=== PATIENT | female | born 1965 | race Caucasian/White ===

== ENCOUNTER → 2016-08-28 | Outpatient (CLI) | payer OTHER ==
[2016-08-28 08:42] LABS: EKG EKG PERFORMED
[2016-08-28 09:30] LABS: Aty Lym Flag Slight; CHCM 32.7; HCT 48.5 % (34.0-46.0); HDW 2.49; HGB 15.6 gm/dL (11.4-16.0); MCH 30.5 pg (25.0-35.0); MCHC 32.1 g/dL (31.0-37.0); MCV 95.2 fL (80.0-100.0); Mean Platelet Volume 7.1; RDW 12.9 % (11.5-15.5); WBC 4.1 k/uL (3.8-10.6); WBC (Perox) 4.07
[2016-08-28 10:10] LABS: Add Differential Manual Differential
[2016-08-28 10:12] LABS: Manual Review Performed; Nucleated Red Blood Cells 0 /100 WBC (0-0); Total Cells Counted 100
[2016-08-28 10:13] LABS: RBC Morphology Normal
[2016-08-28 10:16] LABS: Anion Gap 13 mmol/L; Carbon Dioxide 26 mmol/L (22-30); Chloride 104 mmol/L (98-107); Potassium 4.3 mmol/L (3.5-5.1); Sodium 143 mmol/L (137-145)
== END | disposition home or self-care (01) ==
LOC: LABWHC1 08:29
PROVIDERS: ATTEND Orthopaedic Surgery
DX: Z01.812 Encounter for preprocedural laboratory examination (principal); Z01.810 Encounter for preprocedural cardiovascular examination
CPT/HCPCS: 80051; 85025; 93005

== ENCOUNTER 2016-09-11 07:55 | Day surgery (SDC) | payer OTHER ==
[2016-09-05 13:00] VITALS: BMI 24.7
--- NOTE | 2016-09-10 18:02 | HP ---
DATE OF ADMISSION: 09/11/2016 Brandon Branch is a 51-year-old patient seen with progressive right knee pain. After having treatment options discussed, she elected to proceed with right knee arthroscopy. Consent was obtained. Her past medical history is noncontributory. Past surgical history is appendectomy, ablation. DAILY MEDICATIONS: Ibuprofen. ALLERGIES: IODINE. SOCIAL HISTORY: Patient denies tobacco use. PHYSICAL EVALUATION OF THE RIGHT KNEE: Her range of motion is negative 2 to 120 degrees. There is mild effusion present. Tenderness along the medial joint line with a positive medial Cintia's. Ligaments are stable. Hip rotation is without pain. Distal neurovascular exam is intact. Radiographs of the right knee revealed mild osteoarthritis. An MRI of the right knee revealed a medial meniscal tear as well as loose bodies and osteoarthritis. IMPRESSION: Internal derangement of right knee with medial meniscal tear and loose bodies. PLAN: Right knee arthroscopy with partial meniscectomy, debridement, probable removal of loose bodies.
[~2016-09-11 07:55] MED LIST: DEXAMETHASONE SOD PHOSPHATE 10 MG/ML 1 ML VIAL IV ONE; HYDROmorphone 1 MG/ML 1 ML SYRINGE IVP PRN; LACTATED RINGERS 1,000 ML IV SCH; MIDAZOLAM 2 MG/2 ML VIAL IV PRN; ONDANSETRON 4 MG/2 ML VIAL IVP ONE; ceFAZolin 1,000 MG in DEXTROSE/WATER 1 50ML.BAG IV ONE
[2016-09-11 08:26] VITALS: TEMP 97.8
[2016-09-11] MEDS ORDERED: LIDOCAINE 1% 20 ML VIAL (10MG/ML) FOR IV START INTRADERMA ONE (08:40)
[2016-09-11] MEDS ORDERED: fentaNYL (PF) 50 MCG/ML 2 ML AMP ONE (09:42)
[2016-09-11] MEDS ORDERED: LIDOCAINE 1% INJ 10MG/ML (20 ML MDV) ONE (09:42)
[2016-09-11] MEDS ORDERED: MIDAZOLAM 2 MG/2 ML VIAL ONE (09:42)
[2016-09-11] MEDS ORDERED: PROPOFOL 10 MG/ML 20 ML VIAL IV ONE (09:42)
[2016-09-11] MEDS ORDERED: BUPIVACAIN-EPI 0.25%-1:200,000 30 ML VIAL INTRAARTIC ONE ×2 (09:58→10:19)
--- NOTE | 2016-09-11 10:34 | P.OP ---
Date of Procedure: 09/11/16 Preoperative Diagnosis: Internal derangement right knee Postoperative Diagnosis: 1. Tear medial meniscus right knee 2. Grade 2/3 chondromalacia medial femoral condyle right knee 3. Grade 1/2 chondromalacia patella right knee 4. Medial plica right knee 5. Reactive synovitis medial and suprapatellar compartments right knee Procedure(s) Performed: 1. Arthroscopic partial medial meniscectomy right knee 2. Arthroscopic chondroplasty medial femoral condyle right knee 3. Arthroscopic chondroplasty patella right knee 4. Arthroscopic resection medial plica right knee 5. Arthroscopic partial synovectomy medial and suprapatellar compartments right knee Anesthesia: JOHNATHANA Surgeon: Dillon Niño Estimated Blood Loss (ml): 15 Pathology: none sent Condition: stable Disposition: PACU Indications for Procedure: 51-year-old patient seen with progressive right knee pain. After having treatment options discussed, she elected to proceed with right knee arthroscopy. Operative Findings: See description of procedure Description of Procedure: Patient was taken to the operative suite. Patient underwent a general anesthetic by the department of anesthesia. Patient was given preoperative antibiotics. The right lower extremity was placed in a well-padded arthroscopic leg alonso. The right leg was prepped and draped in the normal sterile orthopedic fashion. A lateral parapatellar and suprapatellar incision was made. Trochars were inserted. Arthroscopy was initiated. Suprapatellar pouch revealed thick reactive synovitis. The patellofemoral joint appeared to articulate congruently. There with grade 1/2 chondromalacia of the patella with osteochondral tears present. The scope was guided into the medial gutter. There was a medial plica present and is seem to impinge along the medial femoral condyle with range of motion. The scope was then guided into the medial compartment. A medial parapatellar incision was made. Trocar inserted followed by probe. There was a complex tear involving the posterior horn medial meniscus. There were grade 2-3 chondral malacia changes of the medial femoral condyle with osteochondral tears present. Thick reactive synovitis was noted anteriorly. There were no loose bodies. A partial medial meniscectomy was performed on a stable tissue. I performed a chondroplasty of the medial femoral condyle down to stable tissue as well as a partial synovectomy. The residual meniscus was probed and found to be stable. The residual osteochondral surface of medial femoral condyle was stable. Scope and probe were then guided into the intercondylar notch. Cruciates were identified, probed and found to be stable. The scope and probe were then guided into lateral compartment. Lateral meniscus was stable. The lateral femoral condyle and tibial plateau revealed mild grade 1 chondromalacia changes. No loose bodies or reactive synovitis. The scope was in guided back into the suprapatellar compartment. I introduced a motorized shaver into the super patellar compartment. I performed a chondroplasty of the patella down to stable tissue. I resected the medial plica. I debrided out some piecemeal fragments of meniscus and performed a partial synovectomy. The shaver was removed. I took the knee through range of motion and noted complete resection medial plica. I took one more look on the entire knee, no residual debris. Instruments were now removed from the joint. The joint was infiltrated with .25 % Marcaine. Steri-Strips were applied to the portal sites. Sterile dressings were applied. The patient was placed into a JR hose. No tourniquet was utilized. The patient was awakened, transferred to a bed and taken to recovery stable satisfactory condition.
[2016-09-11] MEDS: MEPERIDINE 50 MG/ML SYRINGE IVP ONE ×2 (10:44→10:53)
[2016-09-11 11:01] VITALS: RESP 16
[2016-09-11] MEDS ORDERED: KETOROLAC 30 MG/ML 1 ML VIAL IVP ONE (11:19)
[2016-09-11] MEDS ORDERED: HYDROcodone/APAP 7.5-325MG 1 EACH TAB PO ONE (12:10)
[2016-09-11 12:58] VITALS: BP 99/69; PULSE 64
== END 2016-09-11 12:45 | disposition home or self-care (01) ==
LOC: OR 07:55
PROVIDERS: ATTEND Orthopaedic Surgery
DX: S83.241A Other tear of medial meniscus, current injury, right knee, initial encounter (principal); M67.51 Plica syndrome, right knee; M23.41 Loose body in knee, right knee; M17.11 Unilateral primary osteoarthritis, right knee; M65.9 Synovitis and tenosynovitis, unspecified; M22.41 Chondromalacia patellae, right knee; G25.81 Restless legs syndrome; Z91.041 Radiographic dye allergy status; X58.XXXA Exposure to other specified factors, initial encounter; Z79.899 Other long term (current) drug therapy; Z79.1 Long term (current) use of non-steroidal anti-inflammatories (NSAID)
CPT/HCPCS: 29881; 81025; J2250; J1100; J2175; J2405; J2001; J3010; J1885; J1170; J0690; J2704

== ENCOUNTER → 2020-05-08 | Outpatient (CLI) | payer OTHER ==
--- NOTE | 2020-05-09 13:31 | USB ---
Reason for exam: additional evaluation requested from abnormal screening. History: Benign excisional biopsy of the left breast, 2006. Physical Findings: Nurse did not find any significant physical abnormalities on exam. US Breast Workup Limited LT Left limited breast ultrasound including focal area of concern, retroareolar and axilla demonstrates a 2.0cm mixed, echogenicity 2 o'clock with shadowing. Dense versus scar tissue. No obvious mass. These results were verbally communicated with the patient and result sheet given to the patient on 05/08/20. ASSESSMENT: Suspicious, BI-RAD 4 RECOMMENDATION: Surgical consultation of the left breast. Breast MRI of both breasts. Called Dr. Garza's office with mammographic findings and has scheduled an appointment for the patient for 05/31/20 at 9:[address] Macedo. PRELIMINARY REPORT CALLED AND FAXED TO DR. MACEDO ON 05/09/20.
== END | disposition home or self-care (01) ==
LOC: RADUSWWP 15:00
PROVIDERS: ATTEND Family Medicine
DX: R92.8 Other abnormal and inconclusive findings on diagnostic imaging of breast (principal)

== ENCOUNTER → 2020-05-31 | Outpatient (CLI) | payer OTHER ==
[2020-05-31 09:30] VITALS: BP 143/90; PULSE 81; RESP 18; TEMP 98.4
--- NOTE | 2020-05-31 09:39 | P.GSHP ---
History of Present Illness H&P Date: 05/31/20 Chief Complaint: abnormal mammogram and ultrasound left breast Malathi uCello is a 55 year old white female seen in consultation for Dr. Garza who had a bilateral mammogram in 05/02/2020. This revealed heterogeneously dense breast findings were #1. Architectural distortion upper quadrant middle position of the left breast felt may be related to prior excision and an ultrasound was recommended 2. Typical benign round calcifications in the right breast ultrasound of the left breast was then performed on . This revealed a 2 cm mixed echogenicity at the 2 o'clock position with shadowing. Density versus scar tissue. Surgical consultation was recommended as well as MRI of both breasts. Her last prior mammogram was approximately 2006. The patient herself does not feel any masses or nodules in either breast. She is not complaining of any nipple discharge or skin changes. She has not had any recent trauma or infection in the breast. She had a mass removed in 2006 which was benign. She was not recommended to have any further treatment. She was not given a definitive pathologic diagnosis. Caffeine: 4 mugs of coffee per day Nicotine: Negative Theophylline: occasionally Family history: patient adopted unknown Hormonal history: Menarche: 12 , breast fed: no, age at first : 23 menopause: ablation for irregular periods and bleeding 2005, no periods since BCP: less than 1 year hormones: none Surgical history: 1. Tonsillectomy 2. Appendectomy 3. Ganglion cyst left wrist 4. Removal from back 5. laproscopic exam for fertility work up 6. heart cath at 15 7. left breast biopsy 2006 8. Right knee surgery 9. Glaucoma bilateral Medical History: 1. GI bleed no surgery Social history: Nicotine: Negative Alcohol: Occasional Drugs: Negative - Constitutional Comment: takes escitalopram for night sweats Constitutional: Reports sweats - EENT Comment: glaucoma Eyes: bilateral blurred vision Ears: deny: decreased hearing, tinnitus Ears, nose, mouth and throat: Denies headache, Denies sore throat - Breasts Breasts: bilateral: as per HPI - Cardiovascular Cardiovascular: Denies chest pain, Denies shortness of breath - Respiratory Respiratory: Denies cough, Denies 7 - Gastrointestinal Gastrointestinal: Reports as per HPI - Genitourinary (Female) Genitourinary: Denies dysuria, Denies hematuria - Menstruation Menstruation: Reports postmenopausal - Musculoskeletal Musculoskeletal: Denies myalgias - Integumentary Integumentary: Denies pruritus, Denies rash - Neurological Neurological: Denies numbness, Denies weakness - Psychiatric Psychiatric: Denies anxiety - Endocrine Endocrine: Denies fatigue, Denies weight change - Hematologic/Lymphatic Comment: none - Allergic/Immunologic Allergic/Immunologic: Reports seasonal allergies Past Medical History History of Any Multi-Drug Resistant Organisms: None Reported Smoking Status: Never smoker Medications and Allergies Home Medications Medication Instructions Recorded Confirmed Type Carbidopa-Levodopa ER 50-200Mg 1 each PO HS 09/05/16 05/31/20 History [Sinemet ER 50-200] Escitalopram [Lexapro] 5 mg PO DAILY 05/31/20 05/31/20 History Allergies Allergy/AdvReac Type Severity Reaction Status Date / Time Iodinated Contrast Media Allergy Anaphylaxis Verified 05/31/20 09:04 [Iodinated Contrast Media - Oral and] iodine Allergy Anaphylaxis Verified 05/31/20 09:04 Surgical - Exam Vital Signs Temp Pulse Resp BP Pulse Ox 98.4 F 81 18 143/90 98 05/31/20 09:05 05/31/20 09:05 05/31/20 09:05 05/31/20 09:05 05/31/20 09:05 BMI 26 - General well developed, well nourished, no distress - Eyes normal ocular movement - ENT no hearing loss, no congestion - Neck no masses, trachea midline - Respiratory normal respiratory effort, clear to auscultation - Cardiovascular Rhythm: regular Heart Sounds: normal: S1, S2 - Abdomen Abdomen: soft, non tender, no guarding, no rigid, no rebound - Integumentary normal turgor - Neurologic no disoriented, no combative - Musculoskeletal normal gait, normal posture - Psychiatric oriented to time, oriented to person, oriented to place, speech is normal, memory intact Breast exam: BRA: 36G inspection: Bilateral grade 3 ptosis Right breast: Multiple positional exam fibrocystic changes, no dominant masses or nodules of concern Right axilla: No adenopathy of concern left breast: Well-healed scar from prior biopsy, multiple positional exam no dominant masses or nodules of concern, fibrocystic changes Left axilla: No adenopathy of concern Results Mammogram and ultrasound results reviewed Assessment and Plan Assessment: Impression: 1. Abnormal left breast mammogram and ultrasound 2. Prior left breast excisional biopsy in 2006 3. Perimenopausal/decreased night sweats on Lexapro 4. Moderate caffeine intake Plan: 1. Bilateral breast MRI 2. Follow-up after breast MRI 3. Discussed fibrocystic changes and caffeine intake We have discussed the fibrocystic changes can be exacerbated by caffeine. We've also discussed the need for close follow-up especially secondary to the fact that we do not know family history. The patient is going to have an MRI if insurance will allow if not we will review with radiology and ultrasound-guided biopsy versus repeat radiographs in 6 months. CC: Dr. Garza encounter 30 minutes, > 50% of time in planning and counselling Time with Patient: Greater than 30
== END | disposition home or self-care (01) ==
LOC: WWCWWP 08:52
PROVIDERS: ATTEND Surgery
DX: Z53.9 Procedure and treatment not carried out, unspecified reason (principal)

== ENCOUNTER → 2020-06-27 | Outpatient (CLI) | payer OTHER ==
--- NOTE | 2020-07-04 06:52 | BMR ---
EXAMINATION TYPE: MR breast BILAT wo/w con DATE OF EXAM: 06/27/2020 COMPARISON: 3-D mammogram May 02, 2020 BI-RADS 0. Left breast ultrasound May 08, 2020 BI- RADS 4. HISTORY: Abnormal mammogram and ultrasound. History of benign excisional biopsy left breast 2006. TECHNIQUE: A series of fat and water weighted images in the long and short axis views of both breasts are obtained in conjunction with dynamic contrast MRI with subtraction technique. The patient was i njected with 7 mL intravenous Gadavist gadolinium contrast. Three-dimensional and additional postpr ocessing imaging is created on independent workstation and reviewed during official interpretation of this study. FINDINGS: Breast parenchyma redemonstrated heterogeneously dense bilaterally. T2 and STIR weighted im ages show no significant cystic change in either breast. Tiny punctate simple cyst anteriorly left br east 6:00 position image 15 series 301 incidentally noted. T1-weighted images show no suspicious sac containing masses. No suspicious axillary adenopathy bilaterally. Dynamic postcontrast images show mi ld to moderate symmetric background enhancement. Delayed dynamic postcontrast imaging shows no suspic ious intramammary adenopathy bilaterally. With regards to the right breast no suspicious skin thickening is seen. No pathologic enhancement or enhancing masses identified. The chest wall is intact. With regards to the left breast. No abnormal skin thickening is seen. No concerning masses or patholo gic enhancement. The chest wall is intact. IMPRESSION: No MRI evidence for invasive malignancy in either breast. BI-RADS 2 benign findings right breast. BI-RADS 2 benign findings left breast. Recommendation: Patient due for bilateral breast mammogram April 2021 to be back on annual kenyonu
== END | disposition home or self-care (01) ==
LOC: RADMRIMAIN 12:26
PROVIDERS: ATTEND Surgery
DX: R92.8 Other abnormal and inconclusive findings on diagnostic imaging of breast (principal)
CPT/HCPCS: 77049; C8937; A9585

== ENCOUNTER → 2020-06-29 | Outpatient (CLI) | payer OTHER ==
--- NOTE | 2020-06-29 14:22 | P.PN ---
Progress Note - Text Progress Note Date: 06/29/20 Malathi Cuello had a recent mammogram and [id number] which revealed heterogeneously dense breast. Architectural distortion upper quadrant middle position of the left breast was felt to be possibly related to prior excision and an ultrasound was recommended Typical benign calcifications in the right breast were noted ultrasound of the left breast was performed and . this revealed a 2 cm mixed echogenicity at 2 o'clock position with shadowing. density versus scar tissue was felt to be present. surgical consultation was recommended as well as MRI of the breast. An MRI was performed on 06/1820 an official reading is not yet available, however this was reviewed with Dr. Mcdonald. He did not see any discrete lesions of concern in either breast. We did review the ultrasound again as well and there does appear to be a 2 cm lesion at 2:00. He felt that this was sufficiently worrisome to warrant an ultrasound-guided core biopsy despite a probable negative MRI. I discussed with the patient and she would concur. Therefore an ultrasound-guided core biopsy of the 2 o'clock position in the left breast is recommended following this she will come and see me for results.
[2020-06-29 14:23] VITALS: BP 132/87; PULSE 94; RESP 16; TEMP 98.3
== END | disposition home or self-care (01) ==
LOC: WWCWWP 13:52
PROVIDERS: ATTEND Surgery
DX: Z53.9 Procedure and treatment not carried out, unspecified reason (principal)

== ENCOUNTER → 2020-07-04 | Day surgery (SDC) | payer OTHER ==
[2020-07-04 12:19] VITALS: BP 128/64; PULSE 88; RESP 16; TEMP 99
--- NOTE | 2020-07-04 13:35 | USB ---
EXAMINATION TYPE: US discontinued breast bx LT Discontinued ultrasound guided breast biopsy left breast HISTORY: Previous abnormal Area of concern corresponding to the left 2:00 position fails to demonstrate evidence for distinct ma ss. The findings suggesting normal fibroglandular tissue. Biopsy was therefore discontinued. This was discussed with the patient and six-month follow-up mammography and ultrasound is advised. IMPRESSION: Probably benign BI-RADS 3 Recommendation: 6 month follow-up left-sided breast ultrasound and mammography.
== END ==
LOC: RADUSWWP 12:01
PROVIDERS: ATTEND Surgery
DX: R92.8 Other abnormal and inconclusive findings on diagnostic imaging of breast (principal)

== ENCOUNTER → 2021-01-02 | Outpatient (CLI) | payer OTHER ==
--- NOTE | 2021-01-02 13:13 | MM ---
Reason for exam: follow-up at short interval from prior study. Last mammogram was performed 8 months ago. History: US discontinued breast bx LT of the left breast, July 04, 2020. Benign excisional biopsy of the left breast, 2006. Physical Findings: Nurse did not find any significant physical abnormalities on exam. MG 3D Diag Mammo W/Cad LT CC and MLO view(s) were taken of the left breast. Prior study comparison: May 02, 2020, bilateral MG 3d screening mammo w/cad. The breast tissue is heterogeneously dense. This may lower the sensitivity of mammography. No significant new findings when compared with previous films. These results were verbally communicated with the patient and result sheet given to the patient on 01/02/21. ASSESSMENT: Incomplete: need additional imaging evaluation, BI-RAD 0 RECOMMENDATION: Ultrasound of the left breast. (left beast at same area of follow up from prior)
--- NOTE | 2021-01-02 13:14 | USB ---
Reason for exam: additional evaluation requested from abnormal screening. History: US discontinued breast bx LT of the left breast, July 04, 2020. Benign excisional biopsy of the left breast, 2006. US Breast Limited LT Left limited breast ultrasound including focal area of concern, retroareolar and axilla demonstrates no sonographic finding of cyst or mass at 2 o'clock other than island of dense breast tissue. ASSESSMENT: Benign, BI-RAD 2 RECOMMENDATION: Return to routine screening mammogram schedule for both breasts. Back on schedule for April 2021.
== END | disposition home or self-care (01) ==
LOC: RADMAMWWP 10:03
PROVIDERS: ATTEND Surgery
DX: R92.2 Inconclusive mammogram (principal)
CPT/HCPCS: 77061; 77065

== ENCOUNTER 2021-01-03 05:31 | Observation (INO) | payer OTHER ==
[2021-01-03] MEDS ORDERED: SODIUM CHLORIDE 0.9% 500 ML 500 ML IV STA (06:10)
--- NOTE | 2021-01-03 06:19 | ED ---
GI Bleed HPI - General Chief complaint: GI Bleed Stated complaint: Rectal Bleeding Time Seen by Provider: 01/03/21 06:10 Source: patient, family, RN notes reviewed Mode of arrival: ambulatory Limitations: no limitations - History of Present Illness Initial comments: 55-year-old female presents emergency Department chief complaint abdominal pain, diarrhea, rectal bleeding. Patient states started overnight. Patient states she woke up around midnight started having some abdominal discomfort. She states she started having multiple bouts of bloody diarrhea. Patient states she's had 2 bouts is last 10 years or so in which she's had colonoscopies is found to have colitis. Patient states she's noted. Diverticulitis eyes any blood thinners. Patient states she is left-sided abdominal pain no reported fevers or chills no chest pain no shortness breath no back pain no dysuria no hematuria - Related Data Home Medications Medication Instructions Recorded Confirmed Carbidopa-Levodopa ER 50-200Mg 1 each PO HS 09/05/16 07/04/20 [Sinemet ER 50-200] Escitalopram [Lexapro] 5 mg PO DAILY 05/31/20 07/04/20 Allergies Allergy/AdvReac Type Severity Reaction Status Date / Time Iodinated Contrast Media Allergy Anaphylaxis Verified 01/03/21 05:41 [Iodinated Contrast Media - Oral and] iodine Allergy Anaphylaxis Verified 01/03/21 05:41 Review of Systems ROS Statement: Those systems with pertinent positive or pertinent negative responses have been documented in the HPI. ROS Other: All systems not noted in ROS Statement are negative. Past Medical History Past Medical History: No Reported History Additional Past Medical History / Comment(s): Restless leg syndrome 2017, septic colitis 2006, 2014. History of Any Multi-Drug Resistant Organisms: None Reported Past Surgical History: Ablation, Appendectomy, Orthopedic Surgery, Tonsillectomy Additional Past Surgical History / Comment(s): Breast left biopsy. Knee surgery, Ganglion wrist remove Past Anesthesia/Blood Transfusion Reactions: No Reported Reaction Past Psychological History: No Psychological Hx Reported Smoking Status: Former smoker Past Alcohol Use History: Occasional Past Drug Use History: None Reported General Exam Limitations: no limitations General appearance: alert, in no apparent distress Head exam: Present: atraumatic, normocephalic, normal inspection Eye exam: Present: normal appearance, PERRL, EOMI. Absent: scleral icterus, conjunctival injection, periorbital swelling Respiratory exam: Present: normal lung sounds bilaterally. Absent: respiratory distress, wheezes, rales, rhonchi, stridor Cardiovascular Exam: Present: regular rate, normal rhythm, normal heart sounds. Absent: systolic murmur, diastolic murmur, rubs, gallop, clicks GI/Abdominal exam: Present: soft, tenderness (Mild left-sided), normal bowel sounds. Absent: distended, guarding, rebound, rigid Back exam: Absent: CVA tenderness (R), CVA tenderness (L) Neurological exam: Present: alert Skin exam: Present: warm, dry, intact, normal color. Absent: rash Course Vital Signs 01/03/21 05:36 Temperature 97.9 F Pulse Rate 87 Respiratory 18 Rate Blood Pressure 130/87 O2 Sat by Pulse 96 Oximetry Medical Decision Making - Medical Decision Making CT any significant for abnormality she's had couple bowel movements in the emergency room with bloody diarrhea. Patient's hemoglobin is stable. Patient will be admitted for GI consult. - Lab Data Result diagrams: 01/03/21 06:27 01/03/21 06:27 Lab Results 01/03/21 01/03/21 01/03/21 Range/Units 06:27 06:27 06:27 WBC 8.9 (3.8-10.6) k/uL RBC 4.73 (3.80-5.40) m/uL Hgb 15.2 (11.4-16.0) gm/dL Hct 43.8 (34.0-46.0) % MCV 92.6 (80.0-100.0) fL MCH 32.2 (25.0-35.0) pg MCHC 34.7 (31.0-37.0) g/dL RDW 12.9 (11.5-15.5) % Plt Count 270 (150-450) k/uL MPV 7.5 Neutrophils % 60 % Lymphocytes % 28 % Monocytes % 6 % Eosinophils % 4 % Basophils % 1 % Neutrophils # 5.3 (1.3-7.7) k/uL Lymphocytes # 2.5 (1.0-4.8) k/uL Monocytes # 0.5 (0-1.0) k/uL Eosinophils # 0.3 (0-0.7) k/uL Basophils # 0.0 (0-0.2) k/uL PT 9.6 (9.0-12.0) sec INR 0.9 (<1.2) APTT 22.6 (22.0-30.0) sec Sodium 139 (137-145) mmol/L Potassium 4.7 (3.5-5.1) mmol/L Chloride 108 H (98-107) mmol/L Carbon Dioxide 26 (22-30) mmol/L Anion Gap 5 mmol/L BUN 23 H (7-17) mg/dL Creatinine 0.79 (0.52-1.04) mg/dL Est GFR (CKD-EPI)AfAm >90 (>60 ml/min/1.73 sqM) Est GFR (CKD-EPI)NonAf 85 (>60 ml/min/1.73 sqM) Glucose 107 H (74-99) mg/dL Plasma Lactic Acid Rj (0.7-2.0) mmol/L Calcium 9.8 (8.4-10.2) mg/dL Total Bilirubin 0.5 (0.2-1.3) mg/dL AST 29 (14-36) U/L ALT 27 (4-34) U/L Alkaline Phosphatase 121 (38-126) U/L Troponin I (0.000-0.034) ng/mL Total Protein 7.2 (6.3-8.2) g/dL Albumin 4.3 (3.5-5.0) g/dL Lipase 66 (23-300) U/L 01/03/21 01/03/21 Range/Units 06:27 06:27 WBC (3.8-10.6) k/uL RBC (3.80-5.40) m/uL Hgb (11.4-16.0) gm/dL Hct (34.0-46.0) % MCV (80.0-100.0) fL MCH (25.0-35.0) pg MCHC (31.0-37.0) g/dL RDW (11.5-15.5) % Plt Count (150-450) k/uL MPV Neutrophils % % Lymphocytes % % Monocytes % % Eosinophils % % Basophils % % Neutrophils # (1.3-7.7) k/uL Lymphocytes # (1.0-4.8) k/uL Monocytes # (0-1.0) k/uL Eosinophils # (0-0.7) k/uL Basophils # (0-0.2) k/uL PT (9.0-12.0) sec INR (<1.2) APTT (22.0-30.0) sec Sodium (137-145) mmol/L Potassium (3.5-5.1) mmol/L Chloride (98-107) mmol/L Carbon Dioxide (22-30) mmol/L Anion Gap mmol/L BUN (7-17) mg/dL Creatinine (0.52-1.04) mg/dL Est GFR (CKD-EPI)AfAm (>60 ml/min/1.73 sqM) Est GFR (CKD-EPI)NonAf (>60 ml/min/1.73 sqM) Glucose (74-99) mg/dL Plasma Lactic Acid Rj 0.8 (0.7-2.0) mmol/L Calcium (8.4-10.2) mg/dL Total Bilirubin (0.2-1.3) mg/dL AST (14-36) U/L ALT (4-34) U/L Alkaline Phosphatase (38-126) U/L Troponin I <0.012 (0.000-0.034) ng/mL Total Protein (6.3-8.2) g/dL Albumin (3.5-5.0) g/dL Lipase (23-300) U/L Disposition Clinical Impression: Rectal bleeding Disposition: ADMITTED IP TO THIS HOSP Condition: Fair Referrals: Diana Garza MD [Primary Care Provider] - 1-2 days
[2021-01-03] MEDS ORDERED: FAMOTIDINE 20 MG/2 ML VIAL IV STA (06:46)
[2021-01-03] MEDS ORDERED: diphenhydrAMINE 50 MG/ML 1 ML VIAL IVP STA (06:46)
[2021-01-03] MEDS ORDERED: methylPREDNISolone SOD SUCCI 125 MG/2 ML VIAL IV STA (06:46)
[2021-01-03 06:57] LABS: Basophils % (A) 1 %; Eosinophils # (A) 0.3 k/uL (0-0.7); Eosinophils % (A) 4 %; HCT 43.8 % (34.0-46.0); HGB 15.2 gm/dL (11.4-16.0); Lymphocytes # (A) 2.5 k/uL (1.0-4.8); Lymphocytes % (A) 28 %; MCH 32.2 pg (25.0-35.0); MCHC 34.7 g/dL (31.0-37.0); MCV 92.6 fL (80.0-100.0); Mean Platelet Volume 7.5; Monocytes # (A) 0.5 k/uL (0-1.0); Monocytes % (A) 6 %; Neutrophils # (A) 5.3 k/uL (1.3-7.7); Neutrophils % (A) 60 %; Platelet Count 270 k/uL (150-450); RBC 4.73 m/uL (3.80-5.40); RDW 12.9 % (11.5-15.5); WBC 8.9 k/uL (3.8-10.6)
[2021-01-03 07:08] LABS: INR 0.9 (<1.2); Partial Thromboplastin Time 22.6 sec (22.0-30.0); Prothrombin Time 9.6 sec (9.0-12.0)
[2021-01-03 07:25] LABS: ALT 27 U/L (4-34); AST 29 U/L (14-36); African American GFR (CKD) >90 (>60 ml/min/1.73 sqM); Albumin 4.3 g/dL (3.5-5.0); Alkaline Phosphatase 121 U/L (38-126); Anion Gap 5 mmol/L; Blood Urea Nitrogen 23 mg/dL (7-17); Calcium 9.8 mg/dL (8.4-10.2); Carbon Dioxide 26 mmol/L (22-30); Chloride 108 mmol/L (98-107); Glucose 107 mg/dL (74-99); Lipase 66 U/L (23-300); Non-African American GFR(CKD) 85 (>60 ml/min/1.73 sqM); Potassium 4.7 mmol/L (3.5-5.1); Sodium 139 mmol/L (137-145); Total Bilirubin 0.5 mg/dL (0.2-1.3); Total Protein 7.2 g/dL (6.3-8.2)
--- NOTE | 2021-01-03 07:40 | CT ---
EXAMINATION TYPE: CT abdomen pelvis wo con DATE OF EXAM: 01/03/2021 HISTORY: Rectal bleeding CT DLP: 528.1 mGycm. Automated Exposure Control for Dose Reduction was Utilized. TECHNIQUE: CT scan of the abdomen and pelvis is performed without oral or IV contrast. COMPARISON: NONE FINDINGS: Within the limitations of a non-contrast study, the following observations are made. LUNG BASES: No significant abnormality is appreciated. LIVER/GB: No significant abnormality is appreciated. PANCREAS: No significant abnormality is seen. SPLEEN: No significant abnormality is seen. ADRENALS: No significant abnormality is seen. KIDNEYS: Mild left-sided hydronephrosis without obstructing calculus seen. Scattered bilateral pelvic phleboliths. BOWEL: Suboptimal evaluation of bowel without enteric contrast. Stomach poorly distended and suboptim ally evaluated. No suspicious small or large bowel dilatation. A few scattered colonic diverticula. GENITAL ORGANS: Anteverted uterus. LYMPH NODES: No greater than 1cm abdominal or pelvic lymph nodes are appreciated. OSSEOUS STRUCTURES: No significant abnormality is seen. OTHER: No significant additional abnormality is seen. IMPRESSION: Few scattered colonic diverticula. No convincing CT evidence for acute diverticulitis. No bowel obstruction.
[2021-01-03] MEDS ORDERED: ONDANSETRON 4 MG/2 ML VIAL IVP PRN (08:05)
[2021-01-03] MEDS ORDERED: ACETAMINOPHEN TAB 325 MG TAB PO PRN (08:05)
[2021-01-03] MEDS ORDERED: NALOXONE 0.4 MG/ML 1 ML VIAL IV PRN (08:05)
--- NOTE | 2021-01-03 11:09 | P.HPIM ---
History of Present Illness H&P Date: 01/03/21 Chief Complaint: GI bleed This is a 55-year-old female patient of Dr. Garza. Patient presented to ER with complaints of GI bleed. Patient reports his symptoms started last night with diarrhea followed by bright red blood per rectum. Patient reports she's had similar episodes before in 2006 and 2014. Patient reports that she did have colonoscopy at those times was told she had septic colitis. Patient does have a past medical history of restless leg syndrome. Patient denies any alcohol use. Patient denies any recent change to diet. Patient denies any said NSAIDs use Hemoglobin currently stable at 15.2. CT of abdomen and pelvis completed showing few scattered colonic diverticuli no convincing CT evidence of acute diverticulitis no bowel obstruction. At this time patient is complaining of mild abdominal discomfort lower abdomen. Denies nausea or vomiting. Denies any chest pain or shortness of breath. Patient denies any urinary burning or frequency. Review of Systems please refer to HPI otherwise unremarkable Past Medical History Past Medical History: No Reported History Additional Past Medical History / Comment(s): Restless leg syndrome 2016, septic colitis 2006, 2014. History of Any Multi-Drug Resistant Organisms: None Reported Past Surgical History: Ablation, Appendectomy, Orthopedic Surgery, Tonsillectomy Additional Past Surgical History / Comment(s): Breast left biopsy. Knee surgery, Ganglion wrist remove Past Anesthesia/Blood Transfusion Reactions: No Reported Reaction Past Psychological History: No Psychological Hx Reported Smoking Status: Former smoker Past Alcohol Use History: Occasional Past Drug Use History: None Reported Medications and Allergies Home Medications Medication Instructions Recorded Confirmed Type Carbidopa-Levodopa ER 50-200Mg 1 tab PO HS 09/05/16 01/03/21 History [Sinemet ER 50-200] Escitalopram [Lexapro] 10 mg PO DAILY 01/03/21 01/03/21 History Allergies Allergy/AdvReac Type Severity Reaction Status Date / Time Iodinated Contrast Media Allergy Anaphylaxis Verified 01/03/21 08:18 [Iodinated Contrast Media - Oral and] iodine Allergy Anaphylaxis Verified 01/03/21 08:18 Physical Exam Vitals: Vital Signs Temp Pulse Resp BP Pulse Ox 01/03/21 10:17 92 16 98/64 96 01/03/21 08:00 71 16 105/66 95 01/03/21 05:36 97.9 F 87 18 130/87 96 Intake and Output 01/02/21 01/03/21 01/03/21 22:59 06:59 14:59 Other: Weight 71.033 kg Head normocephalic Neck supple Lungs clear to auscultation bilaterally no wheezing or crackles Heart regular rate and rhythm S1-S2, no rub or gallop Abdomen is soft lower abdomen tenderness to palpation nondistended positive bowel sounds no hepatosplenomegaly Extremities no edema Neuro alert and orientated to 3 Results CBC & Chem 7: 01/03/21 06:27 01/03/21 06:27 Labs: Abnormal Lab Results - Last 24 Hours (Table) 01/03/21 Range/Units 06:27 Chloride 108 H (98-107) mmol/L BUN 23 H (7-17) mg/dL Glucose 107 H (74-99) mg/dL Assessment and Plan Assessment: 1. GI bleed. CT of abdomen completed showing few scattered colonic diverticula no convincing CT evidence of acute diverticulitis no bowel obstruction. GI services have been consulted. Continue to monitor hemoglobin 2. Previous episodes of GI bleed requiring colonoscopy 3. History of restless leg syndrome. Patient maintained on levodopa DVT prophylaxis SCDs. GI prophylaxis Protonix GI service is consulted Continue to monitor hemoglobin Time with Patient: Greater than 30
--- NOTE | 2021-01-03 15:23 | P.CONS ---
History of Present Illness - Reason for Consult Consult date: 01/03/21 GI bleed Requesting physician: Sai Daly - Chief Complaint Blood per rectum - History of Present Illness 55-year-old female with a medical history significant for restless legs syndrome and prior hospitalizations for GI bleed which she reports are secondary to septic colitis who presents to the hospital with complaints of blood per rectum. She reports lying down for bed yesterday and being fine. Subsequently she woke up and developed multiple episodes of loose watery bowel movements occurring approximately every 5-10 minutes. She reported severe cramping abdominal pain and association with the bowel movements. Subsequently around 4 AM she started developing multiple episodes of bright red blood per rectum. She's had multiple episodes prior to presentation to the emergency department. She reports 2 similar episodes in 2006 and in 2014 at [facility] and believes that colonoscopies were both normal at that time. She was adopted it is unclear what any family history. She denies any nausea and vomiting in association with her symptoms. She denies any sick contacts, abnormal foods or medicines. No fever or chills. Hemoglobin stable at 15.2 on presentation with WBC 8.9 and platelet count 270,000. Computed tomography scan of the abdomen and pelvis significant for diverticulosis with no evidence of diverticulitis, colitis or bowel ob struction. Review of Systems REVIEW OF SYSTEMS: CONSTITUTIONAL: Denies any fevers, chills, weight change or fatigue. CARDIOVASCULAR: Denies any chest pain, palpitations high or low blood pressures RESPIRATORY: Denies any shortness of breath, hemoptysis or cough. GENITOURINARY: No dysuria or hematuria. MUSCULOSKELETAL: No weakness reported. SKIN: Denies any new rashes or lesions, jaundice or pallor. PSYCHIATRIC: Denies any depression or anxiety. NEUROLOGY: Denies headache, denies any new focal deficits. EARS/NOSE/THROAT: No recent hearing change, congestion, nasal discharge or sore throat. EYES: No pain in eyes, discharge or change in vision. GASTROINTESTINAL: As per HPI. Past Medical History Past Medical History: No Reported History Additional Past Medical History / Comment(s): Restless leg syndrome 2016, septic colitis 2006, 2014. History of Any Multi-Drug Resistant Organisms: None Reported Past Surgical History: Ablation, Appendectomy, Orthopedic Surgery, Tonsillectomy Additional Past Surgical History / Comment(s): Breast left biopsy. Knee surgery, Ganglion wrist remove Past Anesthesia/Blood Transfusion Reactions: No Reported Reaction Past Psychological History: No Psychological Hx Reported Smoking Status: Former smoker Past Alcohol Use History: Occasional Past Drug Use History: None Reported Additional History: Family history: Patient denies any significant family history as she is unclear about her family history is secondary to being adopted. Medications and Allergies Home Medications Medication Instructions Recorded Confirmed Type Carbidopa-Levodopa ER 50-200Mg 1 tab PO HS 09/05/16 01/03/21 History [Sinemet ER 50-200] Escitalopram [Lexapro] 10 mg PO DAILY 01/03/21 01/03/21 History Allergies Allergy/AdvReac Type Severity Reaction Status Date / Time Iodinated Contrast Media Allergy Anaphylaxis Verified 01/03/21 08:18 [Iodinated Contrast Media - Oral and] iodine Allergy Anaphylaxis Verified 01/03/21 08:18 Physical Exam Vitals: Vital Signs Temp Pulse Resp BP Pulse Ox 01/03/21 10:17 92 16 98/64 96 01/03/21 08:00 71 16 105/66 95 01/03/21 05:36 97.9 F 87 18 130/87 96 Intake and Output 01/02/21 01/03/21 01/03/21 22:59 06:59 14:59 Other: Weight 71.033 kg On physical examination, patient appears comfortable in no apparent distress. HEAD: Normocephalic, atraumatic. EYES: No scleral icterus. No conjunctival injection. MOUTH: No lesions, tongue midline. NECK: Trachea midline, no gross abnormalities. CHEST: Clear to auscultation with no wheezing or rhonchi appreciated. HEART: Regular rate and rhythm. ABDOMEN: Soft, nontender to palpation. Bowel sounds are positive. No organomegaly. No guarding or rigidity. EXTREMITIES: No pedal edema. SKIN: No rashes, no jaundice. NEUROLOGIC: Alert and oriented x3. No focal deficits. Results CBC & Chem 7: 01/03/21 06:27 01/03/21 06:27 Labs: Abnormal Lab Results - Last 24 Hours (Table) 01/03/21 Range/Units 06:27 Chloride 108 H (98-107) mmol/L BUN 23 H (7-17) mg/dL Glucose 107 H (74-99) mg/dL CT scan - abdomen: report reviewed (Computed tomography scan of the abdomen and pelvis significant for diverticulosis with no evidence of diverticulitis, colitis or bowel obstruction.) Assessment and Plan (1) Rectal bleeding Narrative/Plan: 55-year-old female presenting with complaints of hematochezia. Multiple episodes of bright red blood per rectum with associated cramping prior to episodes. This was preceded by multiple episodes of nonbloody diarrhea. She reports 2 episodes of similar complaints in the past at which time she was told she had "septic colitis". She reports being evaluated with colonoscopy in 2016 2014 during those presentations and reports that colonoscopies are normal. She denies any sick contacts, unusual foods, new medications, fevers, chills, nausea or vomiting. Hemoglobin stable on presentation at 15.2. Computed tomography scan of the abdomen negative for any evidence of colitis or obstruction with diverticulosis noted. Unclear etiology, suspicion is for perirectal/hemorrhoidal bleeding or possibly diverticular bleeding with no evidence of colitis on computed tomography scan of the abdomen, with other et iology also considered. Current Visit: Yes Status: Acute Code(s): K62.5 - HEMORRHAGE OF ANUS AND RECTUM SNOMED Code(s): 66392480 (2) Diverticulosis Current Visit: Yes Status: Acute Code(s): K57.90 - DVRTCLOS OF INTEST, PART UNSP, W/O PERF OR ABSCESS W/O BLEED SNOMED Code(s): 651648887 Plan: Supportive care Clear liquid diet Continue monitor hemoglobin and hematocrit every 6 hours and transfuse as needed Avoid any anticoagulation therapy Extensive discussion with the patient at this time we'll continue with medical management with no plans for endoscopic, patient has continued bleeding or precipitous fall in hemoglobin will reevaluate at that time Otherwise, recommendation is for repeat colonoscopy in 6-8 weeks Thank you for allowing us to participate in the care of the patient we will continue to follow
[2021-01-03 16:29] LABS: Basophils % (A) 0 %; Eosinophils % (A) 0 %; HCT 44.4 % (34.0-46.0); HGB 15.1 gm/dL (11.4-16.0); Lymphocytes # (A) 0.8 k/uL (1.0-4.8); Lymphocytes % (A) 9 %; MCH 31.7 pg (25.0-35.0); MCHC 33.9 g/dL (31.0-37.0); MCV 93.5 fL (80.0-100.0); Mean Platelet Volume 7.7; Monocytes # (A) 0.2 k/uL (0-1.0); Monocytes % (A) 2 %; Neutrophils # (A) 7.8 k/uL (1.3-7.7); Neutrophils % (A) 88 %; Platelet Count 264 k/uL (150-450); RBC 4.75 m/uL (3.80-5.40); RDW 12.9 % (11.5-15.5); WBC 8.8 k/uL (3.8-10.6)
[2021-01-03] MEDS: CARBIDOPA-LEVODOPA ER 50-200MG 1 EACH TABLET.ER PO SCH (21:12)
[2021-01-04 07:07] LABS: Basophils % (A) 0 %; Eosinophils % (A) 0 %; HCT 43.6 % (34.0-46.0); HGB 14.6 gm/dL (11.4-16.0); Lymphocytes # (A) 2.1 k/uL (1.0-4.8); Lymphocytes % (A) 17 %; MCH 31.6 pg (25.0-35.0); MCHC 33.5 g/dL (31.0-37.0); MCV 94.4 fL (80.0-100.0); Mean Platelet Volume 7.8; Monocytes # (A) 0.5 k/uL (0-1.0); Monocytes % (A) 4 %; Neutrophils # (A) 9.5 k/uL (1.3-7.7); Neutrophils % (A) 77 %; Platelet Count 280 k/uL (150-450); RBC 4.62 m/uL (3.80-5.40); WBC 12.4 k/uL (3.8-10.6)
[2021-01-04] MEDS: PANTOPRAZOLE 40 MG/10 ML VIAL IVP SCH (08:33)
[2021-01-04] MEDS: ESCITALOPRAM 10 MG TAB PO SCH (08:33)
--- NOTE | 2021-01-04 14:26 | PN ---
PROGRESS NOTE DATE OF SERVICE: January 04, 2021 The patient is a 55-year-old pleasant white female admitted to the hospital with lower abdominal pain followed by diarrhea and rectal bleeding for the last 2 days duration. She is feeling much better today. She had 4 bowel movements with small amount of blood noted. Her hemoglobin, however, remains stable at 14.6 g/dL. She denies any nausea, vomiting. No fever, chills, or night sweats. PHYSICAL EXAMINATION: She appears comfortable. No apparent distress. VITAL SIGNS: Stable. Blood pressure is 130/72, pulse rate 70, temperature 98.1. HEENT examination unremarkable. Conjunctivae pink. Sclerae anicteric. Oral cavity no lesions. NECK: No JVD or lymph node enlargement. CHEST was clear to auscultation. HEART: Regular rate and rhythm. ABDOMEN: Soft. There was very minimal tenderness in the left upper quadrant area. Rest of the abdomen was benign. Bowel sounds are positive. No organomegaly. EXTREMITIES: No pedal edema. SKIN: No rashes. NEUROLOGIC: Alert and oriented x3. No focal deficits. LABS: WBC 12.4, hemoglobin 14.6, platelets normal. Basic metabolic panel was not done. IMPRESSION: Lower abdominal pain followed by diarrhea and rectal bleeding of 2 days duration most likely dealing with acute infectious colitis versus ischemic colitis, cannot rule out diverticular bleed, though unlikely. CT scan of the abdomen and pelvis was unremarkable. RECOMMENDATIONS: 1. Obtain stool cultures. 2. Monitor CBC daily. 3. If her bleeding improves, she can be discharged home tomorrow with outpatient colonoscopy in 4-6 weeks. The plan was discussed with the patient. She is agreeable to it. Thank you for this consultation. MMODL / IJN: [id number] /
[2021-01-04] MEDS: CARBIDOPA-LEVODOPA ER 50-200MG 1 EACH TABLET.ER PO SCH (19:40)
[2021-01-05 00:50] LABS: African American GFR (CKD) 112.3 (60.0-200.0); Albumin 4.1 g/dL (3.80-4.90); Albumin/Globulin Ratio 1.64 (1.60-3.17); Anion Gap 6.3 mmol/L (4.00-12.00); BUN/Creat Ratio 24.29 Ratio (12.00-20.00); Calcium 9.6 mg/dL (8.7-10.3); Carbon Dioxide 28.7 mmol/L (21.6-31.8); Globulin 2.5 g/dL (1.6-3.3); Non-African American GFR(CKD) 96.9 (60.0-200.0); Potassium 4.5 mmol/L (3.5-5.5); Total Bilirubin 0.7 mg/dL (0.2-1.2); Total Protein 6.6 g/dL (6.2-8.2)
[2021-01-05] MEDS: ESCITALOPRAM 10 MG TAB PO SCH (09:03)
[2021-01-05] MEDS: PANTOPRAZOLE 40 MG/10 ML VIAL IVP SCH (09:03)
[2021-01-05 10:13] LABS: Basophils # (A) 0.1 k/uL (0-0.2); Basophils % (A) 1 %; Eosinophils # (A) 0.2 k/uL (0-0.7); Eosinophils % (A) 2 %; HCT 45.6 % (34.0-46.0); HGB 14.9 gm/dL (11.4-16.0); Lymphocytes # (A) 1.8 k/uL (1.0-4.8); Lymphocytes % (A) 24 %; MCH 30.9 pg (25.0-35.0); MCHC 32.7 g/dL (31.0-37.0); MCV 94.5 fL (80.0-100.0); Mean Platelet Volume 7.7; Monocytes # (A) 0.3 k/uL (0-1.0); Monocytes % (A) 5 %; Neutrophils # (A) 4.9 k/uL (1.3-7.7); Neutrophils % (A) 67 %; Platelet Count 243 k/uL (150-450); RBC 4.82 m/uL (3.80-5.40); RDW 13.6 % (11.5-15.5); WBC 7.4 k/uL (3.8-10.6)
--- NOTE | 2021-01-05 10:26 | PN ---
PROGRESS NOTE DATE OF DICTATION: January 05, 2021 The patient is a 55-year-old pleasant white female admitted to the hospital with acute lower abdominal pain and rectal bleeding of 2 days duration. She is doing much better today. Her bleeding has completely subsided. She had no bowel movements this morning. Yesterday, she had 4 small bloody bowel movements. She reports no nausea or vomiting, on a clear liquid diet, tolerating well. PHYSICAL EXAMINATION: Appears comfortable. VITAL SIGNS: Stable. Blood pressure 123/78, pulse rate 66, temperature 97.8. HEENT examination unremarkable. Conjunctivae pink. Sclerae anicteric. Oral cavity no lesions. NECK: No JVD or lymph node enlargement. CHEST was clear to auscultation. HEART: Regular rate and rhythm. ABDOMEN: Soft. Bowel sounds are positive. No organomegaly. EXTREMITIES: No pedal edema. SKIN: No rashes. NEURO: She is alert and oriented x3. No focal deficits. LABS: From this morning still pending. Labs from yesterday: Hemoglobin was 14.6. IMPRESSION: Lower abdominal pain and acute lower gastrointestinal bleed of 2 days duration. Hemoglobin stable at 14 g/dL. CBC from this morning are pending. She has no further episodes of bleeding, possibly colitis versus diverticular bleed. The patient clinically improving with no further bleeding. RECOMMENDATIONS: 1. Advance to a regular diet. 2. If the hemoglobin remains stable from today, she can be discharged home with outpatient followup in 2 weeks and we will plan an outpatient colonoscopy in 2-4 weeks. Thank you for this consultation. MMODL / PHILIPN: [id number] /
--- NOTE | 2021-01-05 11:35 | P.PN ---
Subjective Progress Note Date: 01/04/21 This is a 55-year-old female patient of Dr. Garza. Patient presented to ER with complaints of GI bleed. Patient reports his symptoms started last night with diarrhea followed by bright red blood per rectum. Patient reports she's had similar episodes before in 2006 and 2014. Patient reports that she did have colonoscopy at those times was told she had septic colitis. Patient does have a past medical history of restless leg syndrome. Patient denies any alcohol use. Patient denies any recent change to diet. Patient denies any said NSAIDs use Hemoglobin currently stable at 15.2. CT of abdomen and pelvis completed showing few scattered colonic diverticuli no convincing CT evidence of acute d iverticulitis no bowel obstruction. At this time patient is complaining of mild abdominal discomfort lower abdomen. Denies nausea or vomiting. Denies any chest pain or shortness of breath. Patient denies any urinary burning or frequency. On 01/04/2021 Patient was seen and examined on the medical floor, he is alert and oriented x 3 in no distress, patient is complaining of abdominal pain and small amount of rectal bleeding, otherwise, she denies any complaints there is no fever or chills no headache or dizziness no chest pain no shortness of breath no palpitation no cough no nausea or vomiting no diarrhea, no burning with urination no frequency or urgency and no hematuria, there is no weakness or numbness in any of the extremities no change in vision speech or gait. Objective - Vital Signs Vital signs: Vital Signs Temp 98.2 F 01/04/21 05:00 Pulse 83 01/04/21 05:00 Resp 20 01/04/21 05:00 BP 113/72 01/04/21 05:00 Pulse Ox 98 01/04/21 05:00 Intake & Output 01/03/21 01/04/21 01/04/21 18:59 06:59 18:59 Intake Total 720 200 Balance 720 200 Weight 71.033 kg Intake: Oral 720 200 Other: Voiding Method Toilet Toilet # Voids 3 1 - Exam Head normocephalic Neck supple Lungs clear to auscultation bilaterally no wheezing or crackles Heart regular rate and rhythm S1-S2, no rub or gallop Abdomen is soft lower abdomen tenderness to palpation, LLQ, nondistended positive bowel sounds no hepatosplenomegaly Extremities no edema Neuro alert and orientated to 3 - Labs CBC & Chem 7: 01/05/21 09:56 01/04/21 06:05 Labs: Abnormal Lab Results - Last 24 Hours (Table) 01/03/21 01/04/21 Range/Units 16:02 06:05 WBC 12.4 H (3.8-10.6) k/uL Neutrophils # 7.8 H 9.5 H (1.3-7.7) k/uL Lymphocytes # 0.8 L (1.0-4.8) k/uL Assessment and Plan Assessment: 1. GI bleed. CT of abdomen completed showing few scattered colonic diverticula no convincing CT evidence of acute diverticulitis no bowel obstruction. GI services have been consulted. Continue to monitor hemoglobin 2. Previous episodes of GI bleed requiring colonoscopy 3. History of restless leg syndrome. Patient maintained on levodopa DVT prophylaxis SCDs. GI prophylaxis Protonix GI service is consulted Continue to monitor hemoglobin
[2021-01-05 11:53] VITALS: BP 96/62; PULSE 61; RESP 14; TEMP 98.2
--- NOTE | 2021-01-05 12:59 | P.DS ---
Providers Date of admission: 01/03/21 10:18 Expected date of discharge: 01/05/21 Attending physician: Sai Daly Consults: 01/03/21 08:05 Consult Physician Urgent Consulting Provider: Gifty Llanos Consult Reason/Comments: gi bleed Do you want consulting provider notified?: Yes Primary care physician: Diana Garza Hospital Course: Diagnosis on discharge: 1. GI bleed. CT of abdomen completed showing few scattered colonic diverticula no convincing CT evidence of acute diverticulitis no bowel obstruction. GI services have been consulted. Continue to monitor hemoglobin 2. Previous episodes of GI bleed requiring colonoscopy 3. History of restless leg syndrome. Patient maintained on levodopa. 4. Evidence of mild left sided kidney hydronephrosis on computed tomography scan of the abdomen and pelvis, without any evidence of obstructing calculus. This may need to be further evaluated as outpatient with kidney ultrasound in the next 1-2 months, and possible referral to urology if hydronephrosis persists. There is a possibility that patient passed a kidney stone prior to presentation which caused her left sided abdominal pain, Hospital course: This is a 55-year-old female patient of Dr. Garza. Patient presented to ER with complaints of GI bleed. Patient reports his symptoms started last night with diarrhea followed by bright red blood per rectum. Patient reports she's had similar episodes before in 2006 and 2014. Patient reports that she did have colonoscopy at those times was told she had septic colitis. Patient does have a past medical history of restless leg syndrome. Patient denies any alcohol use. Patient denies any recent change to diet. Patient denies any said NSAIDs use Hemoglobin currently stable at 15.2. CT of abdomen and pelvis completed showing few scattered colonic diverticuli no convincing CT evidence of acute diverticulitis no bowel obstruction. At this time patient is complaining of mild abdominal discomfort lower abdomen. Denies nausea or vomiting. Denies any chest pain or shortness of breath. Patient denies any urinary burning or frequency. On 01/04/2021 Patient was seen and examined on the medical floor, he is alert and oriented x 3 in no distress, patient is complaining of abdominal pain and small amount of rectal bleeding, otherwise, she denies any complaints there is no fever or chills no headache or dizziness no chest pain no shortness of breath no palpitation no cough no nausea or vomiting no diarrhea, no burning with urina tion no frequency or urgency and no hematuria, there is no weakness or numbness in any of the extremities no change in vision speech or gait. On 01/05/2021 Patient was seen and examined on the medical floor, he is alert and oriented x 3 in no distress, he denies any complaints there is no fever or chills no headache or dizziness no chest pain no shortness of breath no palpitation no cough no nausea or vomiting no abdominal pain no diarrhea no blood in the stools no burning with urination no frequency or urgency and no hematuria, there is no weakness or numbness in any of the extremities no change in vision speech or gait. Patient was evaluated by Dr. Gifty Llanos and was cleared for discharge patient will be followed by Dr. Whaley as outpatient in the next 1-2 weeks and will have a colonoscopy in the next 2-4 weeks. Patient was informed of abnormality on her left kidney with mild kidney hydronephrosis on the left. She did not want to stay in the hospital to have any further evaluation that regard, she was asymptomatic at the time of discharge, and will be followed by her primary care physician Dr. Garza for further evaluation as outpatient. Patient Condition at Discharge: Fair Plan - Discharge Summary Discharge Rx Participant: No New Discharge Prescriptions: New Pantoprazole Sodium [Protonix] 40 mg PO DAILY 30 Days #30 tablet. Acetaminophen Tab [Tylenol] 650 mg PO Q6HR PRN tab PRN Reason: Mild Pain Or Fever > 100.5 Continue Carbidopa-Levodopa ER 50-200Mg [Sinemet CR 50-200 mg] 1 tab PO HS Escitalopram [Lexapro] 10 mg PO DAILY Discharge Medication List Carbidopa-Levodopa ER 50-200Mg [Sinemet CR 50-200 mg] 1 tab PO HS 09/05/16 [History] Escitalopram [Lexapro] 10 mg PO DAILY 01/03/21 [History] Acetaminophen Tab [Tylenol] 650 mg PO Q6HR PRN tab 01/05/21 [Rx] Pantoprazole Sodium [Protonix] 40 mg PO DAILY 30 Days #30 tablet. 01/05/21 [Rx] Follow up Appointment(s)/Referral(s): Diana Garza MD [Primary Care Provider] - 1-2 days
== END 2021-01-05 14:39 | disposition home or self-care (01) ==
LOC: EC 05:31 → 5NMEDONC 10:18
PROVIDERS: ADMIT Internal Medicine; ATTEND Internal Medicine
DX: K57.32 Diverticulitis of large intestine without perforation or abscess without bleeding (principal); K62.5 Hemorrhage of anus and rectum; N13.2 Hydronephrosis with renal and ureteral calculous obstruction; Z20.822 Contact with and (suspected) exposure to COVID-19; G25.81 Restless legs syndrome; Z79.899 Other long term (current) drug therapy; Z91.041 Radiographic dye allergy status; Z90.49 Acquired absence of other specified parts of digestive tract; Z98.890 Other specified postprocedural states; Z87.891 Personal history of nicotine dependence
CPT/HCPCS: 96376; 96375 ×2; 96361; 96374; 99285; 36415; 80053 ×2; 83605; 83690; 84484; 85025 ×3; 85610; 85730; 87045; 87046; 87635; 74176; G0378 ×3; J1200; J2930; C9113 ×2

== ENCOUNTER 2021-07-26 09:04 | Day surgery (SDC) | payer OTHER ==
[2021-07-24 10:16] VITALS: BMI 28.3
[2021-07-26] MEDS ORDERED: LACTATED RINGERS 1,000 ML IV SCH (09:48)
[2021-07-26 10:02] VITALS: RESP 16; TEMP 98.1
[2021-07-26] MEDS ORDERED: LIDOCAINE 1% (10MG/ML) FOR IV START INTRADERMA ONE (10:05)
[2021-07-26] MEDS ORDERED: PROPOFOL 10 MG/ML 20 ML VIAL IV ONE (11:18)
--- NOTE | 2021-07-26 11:38 | P.PCN ---
Date of Procedure: 07/26/21 Procedure(s) Performed: BRIEF HISTORY: Patient is a 56-year-old pleasant at female scheduled for an elective colonoscopy as a part of screening for colorectal neoplasia. PROCEDURE PERFORMED: Colonoscopy. PREOPERATIVE DIAGNOSIS: Screening for colon cancer. IV sedation per Anesthesia. PROCEDURE: After informed consent was obtained, the patient, was brought into the endoscopy unit. IV sedation was administered by Anesthesia under continuous monitoring. Digital rectal examination was normal. Initially the Olympus CF-160 flexible video colonoscope was then inserted in the rectum, gradually advanced into the cecum without any difficulty. Careful examination was performed as the scope was gradually being withdrawn. Ileocecal valve and the appendiceal orifice were visualized and appeared normal. Prep was excellent. Mucosa of the cecum, ascending colon, transverse colon, descending colon, sigmoid colon, and rectum appeared normal. Scattered sigmoid diverticulosis. Retroflexion was performed in the rectum and no lesions were seen. The patient tolerated the procedure well. IMPRESSION: Normal-appearing colon from rectum to cecum no evidence of colorectal neoplasia Scattered sigmoid diverticulosis. RECOMMENDATIONS: Findings of this examination were discussed with the patient as well as her family. She was advised to have a repeat screening colonoscopy in 10 years..
[2021-07-26 12:12] VITALS: BP 108/64; PULSE 78
== END 2021-07-26 12:17 | disposition home or self-care (01) ==
LOC: ORWHC2ENDO 09:04
PROVIDERS: ATTEND Internal Medicine Gastroenterology
DX: Z12.11 Encounter for screening for malignant neoplasm of colon (principal); K57.90 Diverticulosis of intestine, part unspecified, without perforation or abscess without bleeding; G25.81 Restless legs syndrome; Z79.899 Other long term (current) drug therapy; Z91.041 Radiographic dye allergy status
CPT/HCPCS: J2704; G0121

== ENCOUNTER → 2021-08-21 | Outpatient (CLI) | payer OTHER ==
--- NOTE | 2021-08-21 12:26 | MR ---
EXAMINATION TYPE: MR knee LT wo con DATE OF EXAM: 08/21/2021 COMPARISON: Outside bilateral knee x-rays July 19, 2021 HISTORY: L knee outer knee pain and swelling for a few months TECHNIQUE: Multiplanar, multisequence imaging of the left knee is performed without IV contrast. FINDINGS: MEDIAL MENISCUS: Posterior horn is frayed with abnormal irregular shaped signal extending to inferior articular surface. There is additional vertical increased signal in the central body. LATERAL MENISCUS: Anterior and posterior horns are intact without tear. CRUCIATE LIGAMENTS: The anterior and posterior cruciate ligaments are intact and unremarkable. COLLATERAL LIGAMENTS: The medial collateral ligament and lateral collateral ligament complex are inta ct and unremarkable. EXTENSOR MECHANISM: Visualized quadriceps and patellar tendons are intact. Some increased signal prox imal patellar tendon. EFFUSION: No significant suprapatellar joint effusion. POPLITEAL CYST: Moderate to large sized septated popliteal cyst measures nearly 8.0 cm long axis sag ittal image 24 . TRICOMPARTMENT SPACES: Moderate narrowing with mild to moderate spurring patellofemoral compartment. Mild spurring medial and lateral tibiofemoral compartments. Mild to moderate narrowing medial tibiofe moral compartment. CARTILAGE: Some chondromalacia patella with thinning and fissuring of articular cartilage along the p osterior patellar pole. Mild Fissuring and cartilaginous loss medial tibiofemoral compartment. BONE MARROW SIGNAL: Roughly 6 mm Area of heterogeneous increased T2 signal at site of most prominent cartilaginous loss superior medial patella sagittal image 19. OTHER: No additional significant abnormality is appreciated. IMPRESSION: 1. Full-thickness tear posterior horn of medial meniscus and central body medial meniscus. 2. Moderate tricompartmental degenerative changes greatest patellofemoral compartment as detailed abo ve. 3. Moderate length multi septated popliteal cyst. 4. Mild proximal patellar tendinopathy.
== END | disposition home or self-care (01) ==
LOC: RADMRIMAIN 11:00
PROVIDERS: ATTEND Orthopaedic Surgery
DX: M23.222 Derangement of posterior horn of medial meniscus due to old tear or injury, left knee (principal); M71.22 Synovial cyst of popliteal space [Baker], left knee; M67.864 Other specified disorders of tendon, left knee; M17.12 Unilateral primary osteoarthritis, left knee; M22.42 Chondromalacia patellae, left knee; M25.762 Osteophyte, left knee

== ENCOUNTER → 2021-09-18 | Outpatient (CLI) | payer OTHER ==
[2021-09-18 18:43] LABS: Anion Gap 8.6 mmol/L (10.00-18.00); Carbon Dioxide 27.7 mmol/L (20.0-27.5)
[2021-09-18 18:48] LABS: Basophils # (A) 0.04 X 10*3/uL (0.00-0.10); Basophils % (A) 0.6 %; Eosinophils % (A) 1.4 %; HCT 45.6 % (37.2-46.3); HGB 14.3 g/dL (12.0-15.0); Immature Grans, Automated 0.4 %; Lymphocytes # (A) 2.25 X 10*3/uL (0.90-5.00); Lymphocytes % (A) 32.1 %; MCH 29.8 pg (27.0-32.0); MCHC 31.4 g/dL (32.0-37.0); Mean Platelet Volume 11.1 fL (9.5-12.2); Monocytes # (A) 0.49 X 10*3/uL (0.20-1.00); NRBC Per 100 WBC 0 /100 WBCS (0.0-0.0); Neutrophils % (A) 58.5 %; Platelet Count 289 X 10*3/uL (140-440); RDW 13.8 % (11.5-14.5); WBC 7.01 X 10*3/uL (4.50-10.00)
== END | disposition home or self-care (01) ==
LOC: LABPAT 14:13
PROVIDERS: ATTEND Orthopaedic Surgery
DX: Z01.812 Encounter for preprocedural laboratory examination (principal); M23.92 Unspecified internal derangement of left knee
CPT/HCPCS: 80051; 85025

== ENCOUNTER → 2021-09-18 | Outpatient (CLI) | payer OTHER ==
--- NOTE | 2021-09-20 13:30 | MR ---
EXAMINATION TYPE: MR knee RT wo con DATE OF EXAM: 09/18/2021 COMPARISON: 07/30/2016 and outside radiograph 07/19/2021 HISTORY: 56-year-old female with right knee inner pain. Previous surgery 5 years ago. S02.2XXA, J34. 2. TECHNIQUE: Multiplanar, multisequence imaging of the right knee is performed without IV contrast. FINDINGS: The ACL, ACL, MCL, and LCL complex are intact. There is abnormal obliquely oriented signal within the posterior horn of the medial meniscus extendin g to the body of the medial meniscus. The body is irregular and small, probably postsurgical change. Mild thinning of the weightbearing medial compartment articular cartilage volume. A small 7 mm subcho ndral geode is present along the posterior lip of the medial tibial plateau. The lateral meniscus appears intact. Lateral compartment articular cartilage volume is maintained. There is moderate irregular cartilage loss throughout the patellofemoral compartment with an area of 1.4 cm wide more severe cartilage loss along the medial patellar facet and mid patella. Reactive subc hondral signal change. Cartilage loss slightly progressed from 2016. Trochlear articular cartilage is maintained. Mild anterior subcutaneous soft tissue swelling. Extensor mechanism is intact. Small knee joint effusion. A couple loose bodies within the suprapatellar pouch are redemonstrated, s lightly larger now measuring up to 7 mm versus 5 mm, previously. There is a small 4.4 cm long Shearer's cyst that shows slight leakage. Mild edema within the lateral gastrocnemius. Aberrant high takeoff of the anterior tibial artery that takes a course deep to the popliteus muscle. Preserved normal. No suspicious bone marrow replacement. IMPRESSION: 1. Inhomogeneous signal and irregularity of the posterior horn and body of the medial meniscus at the site of tear seen on 07/30/2016. This could represent postsurgical change. Correlate for any mechani akanksha symptoms to exclude re-tear. 2. Mild diffuse thinning of medial compartment articular cartilage volume. 3. Moderate overall patellofemoral compartmental osteoarthrosis, slightly progressed from 2016. There is a 1.4 cm wide area of more severe cartilage loss along the medial patellar facet and mid patella. 4. Small knee joint effusion with a couple loose bodies in the suprapatellar pouch measuring up to 7 mm. 5. Small leaking Shearer's cyst measuring 4.4 cm. 6. Mild edema within the lateral gastrocnemius. This could be reactive to altered biomechanics or cou ld represent a mild muscle strain. 7. Incidental: Aberrant high takeoff of the anterior tibial artery.
== END | disposition home or self-care (01) ==
LOC: RADMRIMAIN 12:56
PROVIDERS: ATTEND Orthopaedic Surgery
DX: M17.11 Unilateral primary osteoarthritis, right knee (principal); M66.0 Rupture of popliteal cyst; M23.41 Loose body in knee, right knee; R93.6 Abnormal findings on diagnostic imaging of limbs; M94.8X6 Other specified disorders of cartilage, lower leg

== ENCOUNTER 2021-10-10 12:13 | Day surgery (SDC) | payer OTHER ==
[2021-10-09 09:03] VITALS: BMI 27.3
--- NOTE | 2021-10-09 20:44 | HP ---
HISTORY AND PHYSICAL DATE OF SURGERY: 10/10/2021 Brandon Branch is a 56-year-old patient seen with progressive left knee pain. Options were discussed with her. She elected to proceed with left knee arthroscopy. Consent was obtained. PAST MEDICAL HISTORY: Gastroesophageal reflux disease. PAST SURGICAL HISTORY: Appendectomy, knee arthroscopy. DAILY MEDICATIONS: Pantoprazole. ALLERGIES: IODINE. SOCIAL HISTORY: She denies tobacco use. PHYSICAL EVALUATION OF THE LEFT KNEE: Range of motion is zero to 125 degrees. Mild effusion. Tenderness along the medial joint line. Positive medial Cintia's. Ligaments are stable. Hip rotation is without pain. Her distal neurovascular exam is intact. Radiographs of the left knee revealed moderate osteoarthritic changes. MRI left knee revealed medial meniscal tear and popliteal cyst. IMPRESSION: Internal derangement of left knee with medial meniscal tear. PLAN: Left knee arthroscopy with partial meniscectomy and debridement. MMODL / IJN: [id number] /
[~2021-10-10 12:13] MED LIST changes: -DEXAMETHASONE SOD PHOSPHATE 10 MG/ML 1 ML VIAL IV ONE; +DEXAMETHASONE SOD PHOSPHATE 4 MG/ML 1 ML VIAL IV ONE; +HYDROmorphone 0.5 MG/0.5 ML SYRINGE IVP PRN; -HYDROmorphone 1 MG/ML 1 ML SYRINGE IVP PRN; -LACTATED RINGERS 1,000 ML IV SCH; +LIDOCAINE 1% (10MG/ML) FOR IV START INTRADERMA PRN; -ceFAZolin 1,000 MG in DEXTROSE/WATER 1 50ML.BAG IV ONE
[2021-10-10] MEDS: LACTATED RINGERS 1,000 ML IV SCH ×2 (13:06→14:28)
[2021-10-10] MEDS ORDERED: BUPIVACAINE (PF) 0.25% 30 ML VIAL SQ ONE ×2 (14:21→15:05)
[2021-10-10] MEDS ORDERED: PROPOFOL 10 MG/ML 20 ML VIAL IV ONE (14:29)
[2021-10-10] MEDS ORDERED: MIDAZOLAM 2 MG/2 ML VIAL ONE (14:29)
--- NOTE | 2021-10-10 15:24 | P.OP ---
Date of Procedure: 10/10/21 Preoperative Diagnosis: Internal derangement left knee Postoperative Diagnosis: 1. Tear medial and lateral meniscus left knee 2. Grade 4 chondromalacia femoral sulcus left knee 3. Grade 2/3 chondromalacia medial femoral condyle left knee 4. Reactive synovitis medial, lateral and suprapatellar compartments left knee Procedure(s) Performed: 1. Arthroscopic microfracture femoral sulcus left knee 2. Arthroscopic partial medial and lateral meniscectomy left knee 3. Arthroscopic chondroplasty femoral sulcus left knee 4. Arthroscopic chondroplasty medial femoral condyle left knee 5. Arthroscopic partial synovectomy medial, lateral and suprapatellar compartments left knee Anesthesia: JOHNATHANA, local Surgeon: Dillon Niño Estimated Blood Loss (ml): 10 Pathology: none sent Condition: stable Disposition: PACU Indications for Procedure: 56-year-old patient seen with progressive left knee pain. After having treatment options discussed, she elected to proceed with arthroscopy. Operative Findings: See description of procedure Description of Procedure: Patient was taken to the operative suite. Patient underwent a general anesthetic by the department of anesthesia. Patient was given preoperative antibiotics. The left lower extremity was placed in a well-padded arthroscopic leg alonso. The left leg was prepped and draped in the normal sterile orthopedic fashion. A lateral parapatellar and suprapatellar incision was made. Trochars were inserted. Arthroscopy was initiated. Suprapatellar pouch revealed diffuse thick reactive synovitis. The patellofemoral joint appeared articulate congruently. There was grade 3 chondromalacia of the patella and grade 3/4 chondromalacia changes of the femoral sulcus with diffuse osteochondral flap tears present. The scope was guided into the medial gutter. No loose bodies or plica were identified. The scope was then guided into the medial compartment. A medial parapatellar incision was made. Trocar inserted followed by probe. There was a complex tear involving the posterior horn and midbody of the medial meniscus. There were grade 3 chondromalacia changes of the medial femoral condyle with some osteochondral tears present. There was thick reactive synovitis anteriorly. I performed a partial medial meniscectomy getting down to stable meniscal tissue. I performed a chondroplasty of the medial femoral condyle. I performed a partial synovectomy. The residual meniscus was stable. The residual osteochondral surface was stable. There was good decompression of the synovitis. Scope and probe were then guided into the intercondylar notch. Cruciates were identified, probed and found to be stable. The scope and probe were then guided into lateral compartment. Lateral meniscus was found have a small radial tear midbody area. There were mild grade 1 chondromalacia changes of the lateral compartment with no osteochondral tears present. There was some thick reactive synovitis anteriorly. I performed a partial lateral meniscectomy. I performed a partial synovectomy. The residual meniscus was probed and found to be stable. The residual osteochondral surface was stable. The scope was in guided back into the suprapatellar compartment. I introduced a motorized shaver into the super patellar compartment. I debrided some piecemeal fragments of meniscus I encountered. I performed a partial synovectomy. I now performed a chondroplasty of the femoral sulcus and patella getting down to stable osteochondral tissue. The residual osteochondral surfaces appeared stable. There was good decompression synovitis. I did note an area and the femoral sulcus of exposed bone measuring about 1.5 x 1 cm. I performed a microfracture to the area penetrating the bone with resultant bleeding at the microfracture site. The residual osteochondral surface was probed and found to be stable. I took one more look around the entire knee, no residual debris. Instruments were now removed from the joint. The joint was infiltrated with .25% Marcaine. Steri-Strips were applied to the portal sites. Sterile dressings were applied. The patient was placed into a JR hose. No tourniquet was utilized. The patient was awakened, transferred to a bed and taken to recovery stable satisfactory condition.
[2021-10-10 15:25] VITALS: RESP 16; TEMP 97.9
[2021-10-10 16:50] VITALS: BP 112/76; PULSE 99
== END 2021-10-10 17:16 | disposition home or self-care (01) ==
LOC: OR 12:13
PROVIDERS: ATTEND Orthopaedic Surgery
DX: M23.204 Derangement of unspecified medial meniscus due to old tear or injury, left knee (principal); M23.201 Derangement of unspecified lateral meniscus due to old tear or injury, left knee; M94.262 Chondromalacia, left knee; M65.862 Other synovitis and tenosynovitis, left lower leg; I34.1 Nonrheumatic mitral (valve) prolapse; K21.9 Gastro-esophageal reflux disease without esophagitis; Z90.49 Acquired absence of other specified parts of digestive tract; Z98.890 Other specified postprocedural states; Z79.899 Other long term (current) drug therapy; Z91.048 Other nonmedicinal substance allergy status
CPT/HCPCS: 29880; 29879; J2250; J1100; J2405; J0690; J2704; J1170

== ENCOUNTER → 2021-12-25 | Outpatient (CLI) | payer OTHER ==
[2021-12-25 18:06] LABS: Basophils # (A) 0.04 X 10*3/uL (0.00-0.10); Basophils % (A) 0.5 %; Eosinophils # (A) 0.19 X 10*3/uL (0.04-0.35); Eosinophils % (A) 2.5 %; HCT 48.4 % (37.2-46.3); HGB 15.4 g/dL (12.0-15.0); Immature Grans, Automated 0.5 %; Lymphocytes # (A) 1.36 X 10*3/uL (0.90-5.00); Lymphocytes % (A) 17.7 %; MCH 29.3 pg (27.0-32.0); MCHC 31.8 g/dL (32.0-37.0); Mean Platelet Volume 10.3 fL (9.5-12.2); Monocytes # (A) 0.42 X 10*3/uL (0.20-1.00); Monocytes % (A) 5.5 %; NRBC Per 100 WBC 0 /100 WBCS (0.0-0.0); Neutrophils # (A) 5.64 X 10*3/uL (1.80-7.70); Neutrophils % (A) 73.3 %; Platelet Count 324 X 10*3/uL (140-440); RBC 5.26 X 10*6/uL (4.10-5.20); WBC 7.69 X 10*3/uL (4.50-10.00)
[2021-12-25 18:17] LABS: Anion Gap 10.2 mmol/L (10.00-18.00); Carbon Dioxide 25.4 mmol/L (20.0-27.5); Potassium 4.9 mmol/L (3.5-5.5)
== END | disposition home or self-care (01) ==
LOC: LABPAT 13:27
PROVIDERS: ATTEND Orthopaedic Surgery
DX: Z01.812 Encounter for preprocedural laboratory examination (principal); M23.91 Unspecified internal derangement of right knee
CPT/HCPCS: 80051; 85025

== ENCOUNTER → 2022-01-16 | Day surgery (SDC) | payer OTHER ==
[2022-01-14 15:59] VITALS: BMI 26.5
--- NOTE | 2022-01-15 20:14 | HP ---
HISTORY AND PHYSICAL DATE OF SURGERY: 01/16/2022 Brandon Branch is a 56-year-old patient seen with progressive right knee pain. We discussed options for treatment. She elected to proceed with right knee arthroscopy. Consent was obtained. PAST MEDICAL HISTORY: Noncontributory. SURGICAL HISTORY: Knee arthroscopy, appendectomy, ablation surgery. DAILY MEDICATIONS: Noncontributory. ALLERGIES: IODINE. SOCIAL HISTORY: She denies tobacco use. PHYSICAL EVALUATION OF THE RIGHT KNEE: Her range of motion is zero to 125. Mild effusion. Tenderness, medial joint line. Positive medial Cintia's. Ligaments stable. Hip rotation without pain. Distal neurovascular exam intact. Radiographs revealed moderate osteoarthritic changes. MRI right knee revealed medial meniscal tear, osteoarthritic changes, Shearer's cyst and loose bodies. IMPRESSION: 1. Internal derangement of right knee with medial meniscal tear. 2. Right knee loose bodies. 3. Right knee osteoarthritis. PLAN: Right knee arthroscopy with partial medial meniscectomy, removal of loose bodies and debridement. MMODL / IJN: [id number] /
[~2022-01-16] MED LIST changes: +BUPIVACAIN-EPI 0.25%-1:200,000 30 ML VIAL SQ ONE; +LACTATED RINGERS 1,000 ML IV SCH; -LIDOCAINE 1% (10MG/ML) FOR IV START INTRADERMA PRN; +LIDOCAINE 2% INJ 20 MG/ML (2 ML VIAL) ONE; +MEPERIDINE 50 MG/ML SYRINGE IVP ONE; -MIDAZOLAM 2 MG/2 ML VIAL IV PRN; +MIDAZOLAM 2 MG/2 ML VIAL ONE; +PHENYLEPHRINE-0.9% NACL SYG 1,000 MCG/10 ML SYRINGE ONE; +PROPOFOL 10 MG/ML 50 ML VIAL IV ONE; +diphenhydrAMINE 50 MG/ML 1 ML VIAL IVP ONE; +diphenhydrAMINE 50 MG/ML 1 ML VIAL ONE; +fentaNYL (PF) 50 MCG/ML 2 ML AMP ONE
--- NOTE | 2022-01-16 09:56 | P.OP ---
Date of Procedure: 01/16/22 Preoperative Diagnosis: Internal derangement right knee Postoperative Diagnosis: 1. Tear medial meniscus right knee 2. Tear lateral meniscus right knee 3. Grade 2 chondromalacia medial femoral condyle right knee 4. Reactive synovitis medial, lateral and suprapatellar compartments right knee Procedure(s) Performed: 1. Arthroscopic partial medial and lateral meniscectomy right knee 2. Arthroscopic chondroplasty medial femoral condyle right knee 3. Arthroscopic partial synovectomy medial, lateral and suprapatellar compartments right knee Anesthesia: JOHNATHANA, local Surgeon: Dillon Niño Estimated Blood Loss (ml): 6 Pathology: none sent Condition: stable Indications for Procedure: 56-year-old patient seen with progressive right knee pain. After having treatment options discussed, she elected to proceed with arthroscopy. Operative Findings: See description of procedure Description of Procedure: Patient was taken to the operative suite. Patient underwent a general anesthetic by the department of anesthesia. Patient was given preoperative antibiotics. The right lower extremity was placed in a well-padded arthroscopic leg alonso. The right leg was prepped and draped in the normal sterile orthopedic fashion. A lateral parapatellar and suprapatellar incision was made. Trochars were inserted. Arthroscopy was initiated. Suprapatellar pouch revealed diffuse thick reactive synovitis. The patellofemoral joint appeared to articulate congruently. There was grade 1 chondromalacia with no obvious tears present. The scope was guided into the medial gutter. No loose bodies or plica were identified. The scope was then guided into the medial compartment. A medial parapatellar incision was made. Trocar inserted followed by probe. There was a complex tear involving the posterior horn and midbody medial meniscus. There were grade 2 chondromalacia changes of the medial femoral condyle weightbearing surface area with small osteochondral flap tears present. There was thick reactive synovitis anteriorly. I performed a partial medial meniscectomy getting down to stable meniscal tissue. I performed a chondroplasty of the medial femoral condyle getting down to stable osteochondral tissue. I performed a partial synovectomy decompressing the thick reactive synovitis anteriorly. The residual meniscus was stable. The residual osteochondral surface appeared stable. There was good decompression of the synovitis. Scope and probe were then guided into the intercondylar notch. Cruciates were identified, probed and found to be stable. The scope and probe were then guided into lateral compartment. The lateral meniscus revealed some tearing along the midbody area. There was some thick reactive synovitis anteriorly. There was no significant chondromalacia. I performed a partial lateral meniscectomy getting down to stable meniscal tissue. I performed a partial synovectomy decompressing the thick reactive synovitis anteriorly. The residual meniscus was stable. There was good decompression of synovitis. The scope was in guided back into the suprapatellar compartment. I introduced a motorized shaver into the suprapatellar compartment. I debrided some piecemeal fragments of meniscus that I encountered. I performed a partial synovectomy. The shaver was now removed. There was good decompression of synovitis. I took one more look around the entire knee, no residual debris. Instruments were now removed from the joint. The joint was infiltrated with .25% Marcaine. Steri- Strips were applied to the portal sites. Sterile dressings were applied. The patient was placed into a JR hose. No tourniquet was utilized. The patient was awakened, transferred to a bed and taken to recovery stable satisfactory condition.
[2022-01-16 10:10] VITALS: TEMP 97.4
[2022-01-16 11:27] VITALS: BP 103/60; PULSE 70; RESP 20
== END | disposition home or self-care (01) ==
LOC: OR 08:15
PROVIDERS: ATTEND Orthopaedic Surgery
DX: M23.203 Derangement of unspecified medial meniscus due to old tear or injury, right knee (principal); M23.200 Derangement of unspecified lateral meniscus due to old tear or injury, right knee; M94.261 Chondromalacia, right knee; M65.861 Other synovitis and tenosynovitis, right lower leg; Z91.048 Other nonmedicinal substance allergy status; M23.41 Loose body in knee, right knee; M17.11 Unilateral primary osteoarthritis, right knee; Z87.891 Personal history of nicotine dependence; G25.81 Restless legs syndrome; K21.9 Gastro-esophageal reflux disease without esophagitis; Z90.49 Acquired absence of other specified parts of digestive tract; Z98.890 Other specified postprocedural states; Z79.899 Other long term (current) drug therapy; Z88.5 Allergy status to narcotic agent; Z91.041 Radiographic dye allergy status
CPT/HCPCS: 29880; J2250; J1200; J1100; J2175; J2405; J0690; J3010; J2370; J2704; J1170; J2001

== ENCOUNTER → 2023-01-01 | Outpatient (CLI) | payer OTHER ==
--- NOTE | 2023-01-02 09:04 | MM ---
Reason for Exam: Screening (asymptomatic). Last mammogram was performed 2 year(s) and 8 month(s) ago. Patient History: Menarche at age 13. First Full-Term at age 23. 2006, Benign Excisional Biopsy on the left side. 07/04/2020, US discontinued breast bx LT on the left side. Risk Values: Nataly 5 year model risk: 1.3%. NCI Lifetime model risk: 7.4%. Prior Study Comparison: 05/02/2020 Bilateral Screening Mammogram, [facility]. 05/08/2020 Left Diagnostic Ultrasound, [facility]. 06/27/2020 Bilateral Diagnostic Breast MRI, [facility]. 01/02/2021 Left Diagnostic Mammogram, [facility]. 01/02/2021 Left Diagnostic Ultrasound, [facility]. Tissue Density: The breast tissue is heterogeneously dense. This may lower the sensitivity of mammography. Findings: Analyzed By CAD. A few tiny benign-appearing round calcifications throughout bilateral breasts are redemonstrated. Benign-appearing bilateral axillary lymph nodes are again seen. There is no suspicious group of microcalcifications or new suspicious mass in either breast. Overall Assessment: Benign, BI-RAD 2 Management: Screening Mammogram of both breasts in 1 year. . Patient should continue monthly self-breast exams. A clinical breast exam by your physician is recommended on an annual basis. This exam should not preclude additional follow-up of suspicious palpable abnormalities. Note on Nataly scores and lifetime risk: 1. A Nataly score greater than 3% is considered moderate risk. If this is the case, consider specialist referral to assess eligibility for a risk reducing agent. 2. If overall lifetime risk for the development of breast cancer is 20% or higher, the patient may qualify for future screening with alternating mammogram and breast MRI. Electronically signed and approved by: Johnny Gilliland M.D.
== END | disposition home or self-care (01) ==
LOC: RADMAMWWP 14:19
PROVIDERS: ATTEND Family Medicine
DX: Z12.31 Encounter for screening mammogram for malignant neoplasm of breast (principal)
CPT/HCPCS: 77063; 77067

== ENCOUNTER 2024-01-11 03:47 | Observation (INO) | payer OTHER ==
[2024-01-11 04:20] LABS: Basophils # (A) 0.1 k/uL (0-0.2); Basophils % (A) 1 %; Eosinophils # (A) 0.2 k/uL (0-0.7); Eosinophils % (A) 1 %; HCT 48.1 % (34.0-46.0); HGB 15.3 gm/dL (11.4-16.0); Lymphocytes # (A) 1.9 k/uL (1.0-4.8); Lymphocytes % (A) 14 %; MCHC 31.8 g/dL (31.0-37.0); MCV 94.3 fL (80.0-100.0); Mean Platelet Volume 8.2; Monocytes # (A) 0.6 k/uL (0-1.0); Monocytes % (A) 5 %; Neutrophils # (A) 10.5 k/uL (1.3-7.7); Neutrophils % (A) 78 %; Platelet Count 290 k/uL (150-450); RDW 13.4 % (11.5-15.5); WBC 13.5 k/uL (3.8-10.6)
[2024-01-11 04:22] LABS: Appearance,Urine Clear (Clear); Bacteria,Urine Rare /hpf; Bilirubin,Urine Negative (Negative); Blood,Urine Trace (Negative); Color,Urine Yellow; Glucose,Urine (UA) Negative (Negative); Ketones,Urine Negative (Negative); Leukocyte Esterase,Urine Trace (Negative); Mucus,Urine Rare /hpf; Nitrite,Urine Negative (Negative); PH, Urine 5.5 (5.0-8.0); Protein,Urine Negative (Negative); RBC,Urine 1 /hpf (0-5); Specific Gravity,Urine 1.023 (1.001-1.035); Squamous Epithelial Cell,Urine 2 /hpf (0-4); Urobilinogen,Urine <2.0 mg/dL (<2.0); WBC,Urine 6 /hpf (0-5)
--- NOTE | 2024-01-11 04:34 | ED ---
General Adult HPI - General Source: patient, RN notes reviewed, old records reviewed Mode of arrival: ambulatory Limitations: no limitations <Agustin Norton - Last Filed: 01/12/24 05:02> - General Source: RN notes reviewed, old records reviewed Mode of arrival: ambulatory Limitations: no limitations - History of Present Illness -: days(s) Quality: stabbing, aching Consistency: intermittent Improves with: none Worsens with: none Associated Symptoms: loss of appetite, malaise, nausea/vomiting Treatments Prior to Arrival: none <Alejandro Tirado - Last Filed: 01/21/24 14:21> - General Chief complaint: GI Bleed Stated complaint: Bowel Issues Time Seen by Provider: 01/11/24 04:09 - History of Present Illness Initial comments: 58-year-old female with history of lower GI bleed presenting with abdominal cramping and bright red rectal bleeding. Symptoms began just prior to arrival and patient has had several episodes of black bright red blood per rectum. She has associated abdominal cramping. No fever. She did have vomiting prior to arrival. She has had several episodes similar to this in the past. (Agustin Norton) This is a 58 female to the ER for evaluation of blood in the stool nausea vomiting and abdominal pain. (Alejandro Tirado) - Related Data Home Medications Medication Instructions Recorded Confirmed Carbidopa-Levodopa ER 50-200Mg 2 tab PO HS 09/05/16 01/11/24 [Sinemet CR 50-200 mg] Pantoprazole Sodium [Protonix] 40 mg PO HS 01/11/24 01/11/24 Allergies Allergy/AdvReac Type Severity Reaction Status Date / Time Iodinated Contrast Media Allergy Anaphylaxis Verified 01/11/24 11:46 [Iodinated Contrast Media - Oral and] iodine Allergy Anaphylaxis Verified 01/11/24 11:46 hydrocodone [From [place]] AdvReac Nausea Verified 01/11/24 11:46 Review of Systems ROS Other: All systems not noted in ROS Statement are negative. <Agustin Norton - Last Filed: 01/12/24 05:02> ROS Other: All systems not noted in ROS Statement are negative. <Alejandro Tirado - Last Filed: 01/21/24 14:21> ROS Statement: Those systems with pertinent positive or pertinent negative responses have been documented in the HPI. Past Medical History Past Medical History: Eye Disorder, GERD/Reflux Additional Past Medical History / Comment(s): RLS, septic colitis 2006, 2014 & 2020., BILAT GLAUCOMA History of Any Multi-Drug Resistant Organisms: None Reported Past Surgical History: Appendectomy, Orthopedic Surgery, Tonsillectomy, Uterine Ablation Additional Past Surgical History / Comment(s): Breast left biopsy. RIGHT Knee surgery, Ganglion wrist remove, COLONOSCOPY, LAPAROSCOPIES FOR FERTILITY YEARS AGO, BILAT LASIK SURGERY FOR GLAUCOMA Past Anesthesia/Blood Transfusion Reactions: No Reported Reaction, Motion Sickness Past Psychological History: No Psychological Hx Reported Smoking Status: Former smoker Past Alcohol Use History: None Reported Past Drug Use History: None Reported - Past Family History Father History Unknown: Yes Additional Family Medical History / Comment(s): Pt is adopted. Mother History Unknown: Yes Additional Family Medical History / Comment(s): Pt is adopted. <Agustin Norton N - Last Filed: 01/12/24 05:02> General Exam Limitations: no limitations General appearance: alert, in no apparent distress Head exam: Present: atraumatic, normocephalic Eye exam: Present: normal appearance, PERRL ENT exam: Present: normal exam Neck exam: Present: normal inspection. Absent: tenderness, meningismus Respiratory exam: Present: normal lung sounds bilaterally. Absent: respiratory distress, wheezes Cardiovascular Exam: Present: regular rate, normal rhythm GI/Abdominal exam: Present: soft, tenderness. Absent: distended Extremities exam: Present: normal inspection Neurological exam: Present: alert, oriented X3 Psychiatric exam: Present: normal affect, normal mood Skin exam: Present: warm, dry, intact. Absent: cyanosis, diaphoretic <Agustin Norton - Last Filed: 01/12/24 05:02> General appearance: alert, in no apparent distress Head exam: Present: atraumatic, normocephalic, normal inspection Eye exam: Present: normal appearance, PERRL, EOMI. Absent: scleral icterus, conjunctival injection, periorbital swelling ENT exam: Present: normal exam, mucous membranes moist Neck exam: Present: normal inspection. Absent: tenderness, meningismus, lymphadenopathy Respiratory exam: Present: normal lung sounds bilaterally. Absent: respiratory distress, wheezes, rales, rhonchi, stridor Cardiovascular Exam: Present: regular rate, normal rhythm, normal heart sounds. Absent: systolic murmur, diastolic murmur, rubs, gallop, clicks GI/Abdominal exam: Present: soft, normal bowel sounds. Absent: distended, ten derness, guarding, rebound, rigid Extremities exam: Present: normal inspection, full ROM, normal capillary refill. Absent: tenderness, pedal edema, joint swelling, calf tenderness Back exam: Present: normal inspection Neurological exam: Present: alert, oriented X3, CN II-XII intact Psychiatric exam: Present: normal affect, normal mood Skin exam: Present: warm, dry, intact, normal color. Absent: rash <Alejandro Tirado - Last Filed: 01/21/24 14:21> Course <Alejandro Tirado - Last Filed: 01/21/24 14:21> Vital Signs 01/11/24 01/11/24 01/11/24 03:49 07:24 11:53 Temperature 97.7 F 97.7 F 98.1 F Pulse Rate 88 92 78 Respiratory 18 18 16 Rate Blood Pressure 102/69 124/80 103/60 O2 Sat by Pulse 95 95 96 Oximetry - Reevaluation(s) Reevaluation #1: 01/11/24 08:49 Medical records reviewed (Alejandro Tirado) Reevaluation #2: 01/11/24 08:49 Patient recheck hemoglobin results are unchanged (Alejandro Tirado) Reevaluation #3: 01/11/24 08:49 Informed of results questions answered (Alejandro Tirado) - Consultations Consultation #1: Spoke with Dr. Daly who will admit this patient (Alejandro Tirado) Medical Decision Making - Lab Data Result diagrams: 01/11/24 03:55 01/11/24 03:55 <Agustin Norton - Last Filed: 01/12/24 05:02> - Lab Data Result diagrams: 01/13/24 06:14 01/13/24 06:14 <Alejandro Tirado - Last Filed: 01/21/24 14:21> - Medical Decision Making Was pt. sent in by a medical professional or institution (Dr., PA, NIGHT ASSISTANT, urgent care, hospital, or halfway...) When possible be specific @ -No Did you speak to anyone other than the patient for history (EMS, parent, family, police, friend...)? What history was obtained from this source @ -No Did you review nursing and triage notes (agree or disagree)? Why? @ -I reviewed and agree with nursing and triage notes Were old charts reviewed (outside hosp., previous admission, EMS record, old EKG, old radiological studies, urgent care reports/EKG's, halfway records)? Report findings @ -No old charts were reviewed Differential Abdominal Pain Women: Appendicitis, Cholecystitis, diverticulosis, ischemic bowel, pancreatitis, hepatitis, UTI, gastroenteritis, AAA, incarcerated hernia, bowel obstruction, constipation, inflammatory bowel, hepatitis, peptic ulcer disease, splenic infarction, perforated viscus, vulvitis, ovarian torsion, PID, kidney stone, eliana centa abruption, this is not meant to be an all-inclusive list EKG interpreted by me (3pts min.). @ -As above X-rays interpreted by me (1pt min.). @ -None done CT interpreted by me (1pt min.). @CT of the abdomen pelvis showing acute colitis U/S interpreted by me (1pt. min.). @ -None done What testing was considered but not performed or refused? (CT, X-rays, U/S, labs)? Why? @ -None What meds were considered but not given or refused? Why? @ -None Did you discuss the management of the patient with other professionals (professionals i.e. EDUARDO Galvez, NIGHT ASSISTANT, lab, RT, psych nurse, hospice social worker, sap integration architect, teacher, sales officer, casework supervisor)? Give summary @ -No Was smoking cessation discussed for >3mins.? @ -No Was critical care preformed (if so, how long)? @ -No Were there social determinants of health that impacted care today? How? (Homelessness, low income, unemployed, alcoholism, drug addiction, transportation, low edu. Level, literacy, decrease access to med. care, longterm, rehab)? @ -No Was there de-escalation of care discussed even if they declined (Discuss DNR or withdrawal of care, Hospice)? DNR status @ -No What co-morbidities impacted this encounter? (DM, HTN, Smoking, COPD, CAD, Cancer, CVA, ARF, Chemo, Hep., AIDS, mental health diagnosis, sleep apnea, morbid obesity)? @ -[Previous history of colitis and diverticulosis Was patient admitted / discharged? Hospital course, mention meds given and route, prescriptions, significant lab abnormalities, going to OR and other pertinent info. @ -58-year-old female presenting with rectal bleeding lower abdominal pain. Mild leukocytosis, stable hemoglobin, CT showing acute colitis. Patient monitored in the emergency department. Care signed out at shift change awaiting reevaluation and symptomatic relief. Undiagnosed new problem with uncertain prognosis? @ -No Drug Therapy requiring intensive monitoring for toxicity (Heparin, Nitro, Insulin, Cardizem)? @ -No Were any procedures done? @ -No Diagnosis/symptom? @Rectal bleed, acute colitis Acute, or Chronic, or Acute on Chronic? @ -acute Uncomplicated (without systemic symptoms) or Complicated (systemic symptoms)? @ -Default Side effects of treatment? @ -No Exacerbation, Progression, or Severe Exacerbation? @ -No Poses a threat to life or bodily function? How? (Chest pain, [place], [place], pneumonia, PE, COPD, DKA, ARF, appy, cholecystitis, CVA, Diverticulitis, Homicidal, Suicidal, threat to staff... and all critical care pts) @ -Low risk at this time (Agustin Norton) 58 female to be admitted for persistent GI bleed and severe abdominal pain uncontrolled abdominal pain here in the emergency department and symptomatic treatment (Alejandro Tirado) - Lab Data Lab Results 01/11/24 01/11/24 01/11/24 Range/Units 03:55 03:55 03:55 WBC 13.5 H (3.8-10.6) k/uL RBC 5.10 (3.80-5.40) m/uL Hgb 15.3 (11.4-16.0) gm/dL Hct 48.1 H (34.0-46.0) % MCV 94.3 (80.0-100.0) fL MCH 30.0 (25.0-35.0) pg MCHC 31.8 (31.0-37.0) g/dL RDW 13.4 (11.5-15.5) % Plt Count 290 (150-450) k/uL MPV 8.2 Neutrophils % 78 % Lymphocytes % 14 % Monocytes % 5 % Eosinophils % 1 % Basophils % 1 % Neutrophils # 10.5 H (1.3-7.7) k/uL Lymphocytes # 1.9 (1.0-4.8) k/uL Monocytes # 0.6 (0-1.0) k/uL Eosinophils # 0.2 (0-0.7) k/uL Basophils # 0.1 (0-0.2) k/uL PT 9.9 L (10.0-12.5) sec INR 0.9 (<1.2) APTT 23.4 (22.0-30.0) sec Sodium 142 (137-145) mmol/L Potassium 4.9 (3.5-5.1) mmol/L Chloride 107 (98-107) mmol/L Carbon Dioxide 31 H (22-30) mmol/L Anion Gap 4 mmol/L BUN 24 H (7-17) mg/dL Creatinine 0.75 (0.52-1.04) mg/dL Est GFR (CKD-EPI)AfAm >90 (>60 ml/min/1.73 sqM) Est GFR (CKD-EPI)NonAf 88 (>60 ml/min/1.73 sqM) Glucose 116 H (74-99) mg/dL Plasma Lactic Acid Rj (0.7-2.0) mmol/L Calcium 9.6 (8.4-10.2) mg/dL Phosphorus (2.5-4.5) mg/dL Magnesium (1.6-2.3) mg/dL Total Bilirubin 0.8 (0.2-1.3) mg/dL AST 27 (14-36) U/L ALT 25 (4-34) U/L Alkaline Phosphatase 132 H (38-126) U/L Total Protein 7.3 (6.3-8.2) g/dL Albumin 4.3 (3.5-5.0) g/dL Lipase 45 (23-300) U/L Urine Color Urine Appearance (Clear) Urine pH (5.0-8.0) Ur Specific [place] (1.001-1.035) Urine Protein (Negative) Urine Glucose (UA) (Negative) Urine Ketones (Negative) Urine Blood (Negative) Urine Nitrite (Negative) Urine Bilirubin (Negative) Urine Urobilinogen (<2.0) mg/dL Ur Leukocyte Esterase (Negative) Urine RBC (0-5) /hpf Urine WBC (0-5) /hpf Ur Squamous Epith Cells (0-4) /hpf Urine Bacteria (None) /hpf Urine Mucus (None) /hpf 01/11/24 01/11/24 01/11/24 Range/Units 03:55 03:57 08:11 WBC 14.4 H (3.8-10.6) k/uL RBC 4.91 (3.80-5.40) m/uL Hgb 14.8 (11.4-16.0) gm/dL Hct 45.6 (34.0-46.0) % MCV 92.9 (80.0-100.0) fL MCH 30.1 (25.0-35.0) pg MCHC 32.4 (31.0-37.0) g/dL RDW 13.6 (11.5-15.5) % Plt Count 244 (150-450) k/uL MPV 8.3 Neutrophils % 79 % Lymphocytes % 12 % Monocytes % 5 % Eosinophils % 2 % Basophils % 1 % Neutrophils # 11.4 H (1.3-7.7) k/uL Lymphocytes # 1.8 (1.0-4.8) k/uL Monocytes # 0.7 (0-1.0) k/uL Eosinophils # 0.2 (0-0.7) k/uL Basophils # 0.1 (0-0.2) k/uL PT (10.0-12.5) sec INR (<1.2) APTT (22.0-30.0) sec Sodium (137-145) mmol/L Potassium (3.5-5.1) mmol/L Chloride (98-107) mmol/L Carbon Dioxide (22-30) mmol/L Anion Gap mmol/L BUN (7-17) mg/dL Creatinine (0.52-1.04) mg/dL Est GFR (CKD-EPI)AfAm (>60 ml/min/1.73 sqM) Est GFR (CKD-EPI)NonAf (>60 ml/min/1.73 sqM) Glucose (74-99) mg/dL Plasma Lactic Acid Rj 1.1 (0.7-2.0) mmol/L Calcium (8.4-10.2) mg/dL Phosphorus (2.5-4.5) mg/dL Magnesium (1.6-2.3) mg/dL Total Bilirubin (0.2-1.3) mg/dL AST (14-36) U/L ALT (4-34) U/L Alkaline Phosphatase (38-126) U/L Total Protein (6.3-8.2) g/dL Albumin (3.5-5.0) g/dL Lipase (23-300) U/L Urine Color Yellow Urine Appearance Clear (Clear) Urine pH 5.5 (5.0-8.0) Ur Specific [place] 1.023 (1.001-1.035) Urine Protein Negative (Negative) Urine Glucose (UA) Negative (Negative) Urine Ketones Negative (Negative) Urine Blood Trace H (Negative) Urine Nitrite Negative (Negative) Urine Bilirubin Negative (Negative) Urine Urobilinogen <2.0 (<2.0) mg/dL Ur Leukocyte Esterase Trace H (Negative) Urine RBC 1 (0-5) /hpf Urine WBC 6 H (0-5) /hpf Ur Squamous Epith Cells 2 (0-4) /hpf Urine Bacteria Rare H (None) /hpf Urine Mucus Rare H (None) /hpf 01/12/24 01/12/24 Range/Units 05:49 05:49 WBC 10.2 (3.8-10.6) k/uL RBC 4.58 (3.80-5.40) m/uL Hgb 13.9 (11.4-16.0) gm/dL Hct 43.4 (34.0-46.0) % MCV 94.8 (80.0-100.0) fL MCH 30.4 (25.0-35.0) pg MCHC 32.1 (31.0-37.0) g/dL RDW 13.3 (11.5-15.5) % Plt Count 224 (150-450) k/uL MPV 7.9 Neutrophils % 74 % Lymphocytes % 17 % Monocytes % 5 % Eosinophils % 2 % Basophils % 1 % Neutrophils # 7.5 (1.3-7.7) k/uL Lymphocytes # 1.7 (1.0-4.8) k/uL Monocytes # 0.5 (0-1.0) k/uL Eosinophils # 0.2 (0-0.7) k/uL Basophils # 0.1 (0-0.2) k/uL PT (10.0-12.5) sec INR (<1.2) APTT (22.0-30.0) sec Sodium 139 (137-145) mmol/L Potassium 3.6 (3.5-5.1) mmol/L Chloride 110 H (98-107) mmol/L Carbon Dioxide 24 (22-30) mmol/L Anion Gap 5 mmol/L BUN 10 (7-17) mg/dL Creatinine 0.61 (0.52-1.04) mg/dL Est GFR (CKD-EPI)AfAm >90 (>60 ml/min/1.73 sqM) Est GFR (CKD-EPI)NonAf >90 (>60 ml/min/1.73 sqM) Glucose 83 (74-99) mg/dL Plasma Lactic Acid Rj (0.7-2.0) mmol/L Calcium 8.3 L (8.4-10.2) mg/dL Phosphorus 3.4 (2.5-4.5) mg/dL Magnesium 2.1 (1.6-2.3) mg/dL Total Bilirubin 1.0 (0.2-1.3) mg/dL AST 24 (14-36) U/L ALT 26 (4-34) U/L Alkaline Phosphatase 84 (38-126) U/L Total Protein 5.9 L (6.3-8.2) g/dL Albumin 3.3 L (3.5-5.0) g/dL Lipase (23-300) U/L Urine Color Urine Appearance (Clear) Urine pH (5.0-8.0) Ur Specific [place] (1.001-1.035) Urine Protein (Negative) Urine Glucose (UA) (Negative) Urine Ketones (Negative) Urine Blood (Negative) Urine Nitrite (Negative) Urine Bilirubin (Negative) Urine Urobilinogen (<2.0) mg/dL Ur Leukocyte Esterase (Negative) Urine RBC (0-5) /hpf Urine WBC (0-5) /hpf Ur Squamous Epith Cells (0-4) /hpf Urine Bacteria (None) /hpf Urine Mucus (None) /hpf Disposition <Agustin Norton - Lonnie Filed: 01/12/24 05:02> Is patient prescribed a controlled substance at d/c from ED?: No Time of Disposition: 08:30 <Alejandro Tirado - Last Filed: 01/21/24 14:21> Clinical Impression: Rectal bleeding, Diverticulosis, Colitis, GIB (gastrointestinal bleeding) Disposition: ADMITTED IP TO THIS HOSP Condition: Stable
[2024-01-11 04:41] LABS: INR 0.9 (<1.2); Partial Thromboplastin Time 23.4 sec (22.0-30.0); Prothrombin Time 9.9 sec (10.0-12.5)
[2024-01-11 04:53] LABS: ALT 25 U/L (4-34); AST 27 U/L (14-36); African American GFR (CKD) >90 (>60 ml/min/1.73 sqM); Albumin 4.3 g/dL (3.5-5.0); Alkaline Phosphatase 132 U/L (38-126); Anion Gap 4 mmol/L; Blood Urea Nitrogen 24 mg/dL (7-17); Calcium 9.6 mg/dL (8.4-10.2); Carbon Dioxide 31 mmol/L (22-30); Chloride 107 mmol/L (98-107); Glucose 116 mg/dL (74-99); Lipase 45 U/L (23-300); Non-African American GFR(CKD) 88 (>60 ml/min/1.73 sqM); Potassium 4.9 mmol/L (3.5-5.1); Sodium 142 mmol/L (137-145); Total Bilirubin 0.8 mg/dL (0.2-1.3); Total Protein 7.3 g/dL (6.3-8.2)
--- NOTE | 2024-01-11 05:37 | CT ---
EXAMINATION TYPE: CT abdomen pelvis wo con DATE OF EXAM: 01/11/2024 HISTORY: Patient states blood in her stool. Patient states that this has happened before. CT DLP: 628.5 mGycm. Automated Exposure Control for Dose Reduction was Utilized. TECHNIQUE: CT scan of the abdomen and pelvis is performed without oral or IV contrast. COMPARISON: Prior CT January 03, 2021 FINDINGS: Within the limitations of a non-contrast study, the following observations are made. LUNG BASES: There are 2 small nodules in the periphery of the right middle lobe measuring up to 4 mm in size on axial image 5. Consider follow-up nonemergent chest CT to evaluate for possible additional pulmonary nodules. LIVER/GB: Liver is diffusely low dense consistent with fatty infiltrative hepatocellular disease. PANCREAS: No significant abnormality is seen. SPLEEN: No significant abnormality is seen. ADRENALS: No significant abnormality is seen. KIDNEYS: No significant abnormality is seen. BOWEL: Suboptimal evaluation of bowel without enteric contrast. No abnormal small or large bowel dila tation. Occasional scattered colonic diverticula are identified similar to prior. Moderate wall thick ening in the distal one half of the right colon extending into the proximal one half of the transvers e colon. Similar findings in the distal transverse colon near the splenic flexure extending into the descending colon where there is more moderate to severe wall thickening distally. Moderate wall thick ening in the sigmoid colon. Mild to moderate ill-defined fluid and fat stranding in the left lower qu adrant is present. No free air or mesenteric air. No well-formed fluid collection or abscess. GENITAL ORGANS: Anteverted uterus. Scattered punctate phleboliths. LYMPH NODES: No greater than 1cm abdominal or pelvic lymph nodes are appreciated. OSSEOUS STRUCTURES: No significant abnormality is seen. OTHER: No significant additional abnormality is seen. IMPRESSION: Acute colitis is present at least involving mid to distal left colon in the left lower qu adrant. Differential includes infectious, inflammatory, and ischemic etiologies. Clinical correlation and follow-up is advised.
[2024-01-11] MEDS: ONDANSETRON 4 MG/2 ML VIAL IVP STA ×2 (06:21→10:21)
[2024-01-11] MEDS: SODIUM CHLORIDE 0.9% 1,000 ML IV ONE (06:21)
[2024-01-11] MEDS: HYDROmorphone 0.5 MG/0.5 ML SYRINGE IVP STA (06:21)
[2024-01-11 08:25] LABS: Basophils # (A) 0.1 k/uL (0-0.2); Basophils % (A) 1 %; Eosinophils # (A) 0.2 k/uL (0-0.7); Eosinophils % (A) 2 %; HCT 45.6 % (34.0-46.0); HGB 14.8 gm/dL (11.4-16.0); Lymphocytes # (A) 1.8 k/uL (1.0-4.8); Lymphocytes % (A) 12 %; MCH 30.1 pg (25.0-35.0); MCHC 32.4 g/dL (31.0-37.0); MCV 92.9 fL (80.0-100.0); Mean Platelet Volume 8.3; Monocytes # (A) 0.7 k/uL (0-1.0); Monocytes % (A) 5 %; Neutrophils # (A) 11.4 k/uL (1.3-7.7); Neutrophils % (A) 79 %; Platelet Count 244 k/uL (150-450); RBC 4.91 m/uL (3.80-5.40); RDW 13.6 % (11.5-15.5); WBC 14.4 k/uL (3.8-10.6)
[2024-01-11] MEDS ORDERED: NALOXONE 0.4 MG/ML 1 ML VIAL IV PRN (08:31)
[2024-01-11] MEDS ORDERED: ONDANSETRON 4 MG/2 ML VIAL IVP PRN (08:31)
[2024-01-11] MEDS: METOCLOPRAMIDE 5 MG/ML 2 ML VIAL IVP STA (10:22)
[2024-01-11] MEDS: MORPHINE SULFATE 4 MG/ML SYRINGE IVP STA (10:24)
[2024-01-11] MEDS: PANTOPRAZOLE 40 MG/10 ML VIAL IV SCH (10:24)
[2024-01-11] MEDS: diphenhydrAMINE 50 MG/ML 1 ML VIAL IVP STA (10:24)
[2024-01-11] MEDS: SODIUM CHLORIDE 0.9% 500 ML 500 ML IV STA (10:38)
[2024-01-11] MEDS: AMPICILLIN-SULBACTAM 3 GM in SODIUM CHLORIDE 0.9% 100 ML IVPB STA (10:38)
[2024-01-11] MEDS: SODIUM CHLORIDE 0.9% 1,000 ML IV SCH (11:29)
--- NOTE | 2024-01-11 17:21 | P.GSCN ---
History of Present Illness Consult date: 01/11/24 Reason for Consult: abdominal pain, bloody bowel movement History of present illness: this is a 58-year-old female who's had a several day history of not feeling well. Patient's had appendectomy abdominal pain with evidence of mucousy bloody bowel movements. Past Medical History Past Medical History: Eye Disorder, GERD/Reflux Additional Past Medical History / Comment(s): RLS, septic colitis 2006, 2014 & 2020., BILAT GLAUCOMA History of Any Multi-Drug Resistant Organisms: None Reported Past Surgical History: Appendectomy, Orthopedic Surgery, Tonsillectomy, Uterine Ablation Additional Past Surgical History / Comment(s): Breast left biopsy. RIGHT Knee surgery, Ganglion wrist remove, COLONOSCOPY, LAPAROSCOPIES FOR FERTILITY YEARS AGO, BILAT LASIK SURGERY FOR GLAUCOMA Past Anesthesia/Blood Transfusion Reactions: No Reported Reaction, Motion Sickness Past Psychological History: No Psychological Hx Reported Smoking Status: Former smoker Past Alcohol Use History: None Reported Past Drug Use History: None Reported - Past Family History Father History Unknown: Yes Additional Family Medical History / Comment(s): Pt is adopted. Mother History Unknown: Yes Additional Family Medical History / Comment(s): Pt is adopted. Medications and Allergies Home Medications Medication Instructions Recorded Confirmed Type Carbidopa-Levodopa ER 50-200Mg 2 tab PO HS 09/05/16 01/11/24 History [Sinemet CR 50-200 mg] Pantoprazole Sodium [Protonix] 40 mg PO HS 01/11/24 01/11/24 History Allergies Allergy/AdvReac Type Severity Reaction Status Date / Time Iodinated Contrast Media Allergy Anaphylaxis Verified 01/11/24 11:46 [Iodinated Contrast Media - Oral and] iodine Allergy Anaphylaxis Verified 01/11/24 11:46 hydrocodone [From [place]] AdvReac Nausea Verified 01/11/24 11:46 Surgical - Exam Vital Signs Temp Pulse Resp BP Pulse Ox 97.7 F 88 18 102/69 95 01/11/24 03:49 01/11/24 03:49 01/11/24 03:49 01/11/24 03:49 01/11/24 03:49 - General well developed, well nourished, no distress - Eyes PERRL - ENT normal pinna - Neck no masses - Respiratory normal expansion - Cardiovascular Rhythm: regular - Abdomen minimal tenderness throughout. There is no rebound or guarding. Abdomen: soft Results - Labs 01/11/24 08:11 01/11/24 03:55 Abnormal Lab Results - Last 24 Hours (Table) 01/11/24 01/11/24 01/11/24 Range/Units 03:55 03:55 03:55 WBC 13.5 H (3.8-10.6) k/uL Hct 48.1 H (34.0-46.0) % Neutrophils # 10.5 H (1.3-7.7) k/uL PT 9.9 L (10.0-12.5) sec Carbon Dioxide 31 H (22-30) mmol/L BUN 24 H (7-17) mg/dL Glucose 116 H (74-99) mg/dL Alkaline Phosphatase 132 H (38-126) U/L Urine Blood (Negative) Ur Leukocyte Esterase (Negative) Urine WBC (0-5) /hpf Urine Bacteria (None) /hpf Urine Mucus (None) /hpf 01/11/24 01/11/24 Range/Units 03:57 08:11 WBC 14.4 H (3.8-10.6) k/uL Hct (34.0-46.0) % Neutrophils # 11.4 H (1.3-7.7) k/uL PT (10.0-12.5) sec Carbon Dioxide (22-30) mmol/L BUN (7-17) mg/dL Glucose (74-99) mg/dL Alkaline Phosphatase (38-126) U/L Urine Blood Trace H (Negative) Ur Leukocyte Esterase Trace H (Negative) Urine WBC 6 H (0-5) /hpf Urine Bacteria Rare H (None) /hpf Urine Mucus Rare H (None) /hpf Diabetes panel 01/11/24 Range/Units 03:55 Sodium 142 (137-145) mmol/L Potassium 4.9 (3.5-5.1) mmol/L Chloride 107 (98-107) mmol/L Carbon Dioxide 31 H (22-30) mmol/L BUN 24 H (7-17) mg/dL Creatinine 0.75 (0.52-1.04) mg/dL Glucose 116 H (74-99) mg/dL Calcium 9.6 (8.4-10.2) mg/dL AST 27 (14-36) U/L ALT 25 (4-34) U/L Alkaline Phosphatase 132 H (38-126) U/L Total Protein 7.3 (6.3-8.2) g/dL Albumin 4.3 (3.5-5.0) g/dL Calcium panel 01/11/24 Range/Units 03:55 Calcium 9.6 (8.4-10.2) mg/dL Albumin 4.3 (3.5-5.0) g/dL Pituitary panel 01/11/24 Range/Units 03:55 Sodium 142 (137-145) mmol/L Potassium 4.9 (3.5-5.1) mmol/L Chloride 107 (98-107) mmol/L Carbon Dioxide 31 H (22-30) mmol/L BUN 24 H (7-17) mg/dL Creatinine 0.75 (0.52-1.04) mg/dL Glucose 116 H (74-99) mg/dL Calcium 9.6 (8.4-10.2) mg/dL Adrenal panel 01/11/24 Range/Units 03:55 Sodium 142 (137-145) mmol/L Potassium 4.9 (3.5-5.1) mmol/L Chloride 107 (98-107) mmol/L Carbon Dioxide 31 H (22-30) mmol/L BUN 24 H (7-17) mg/dL Creatinine 0.75 (0.52-1.04) mg/dL Glucose 116 H (74-99) mg/dL Calcium 9.6 (8.4-10.2) mg/dL Total Bilirubin 0.8 (0.2-1.3) mg/dL AST 27 (14-36) U/L ALT 25 (4-34) U/L Alkaline Phosphatase 132 H (38-126) U/L Total Protein 7.3 (6.3-8.2) g/dL Albumin 4.3 (3.5-5.0) g/dL - Imaging CT scan - abdomen: report reviewed (evidence of colitis) Assessment and Plan Assessment: GI bleed related to colitis. Patient will be managed medically. We will plan for colonoscopy on .
--- NOTE | 2024-01-11 17:25 | P.HPIM ---
History of Present Illness H&P Date: 01/11/24 Brandon Branch, is a 58-year-old female who presented to [facility] emergency room with a chief complaint of rectal bleeding and abdominal cramping and pain, symptoms started 2 days ago and has been worsening. She was evaluated in the emergency room vital examination on presentation revealed a temperature of 97.7 pulse 88 respiration 18 blood pressure 102/69 pulse ox 95% on room air Laboratory data revealed a white blood count of 14.4 hemoglobin 14.8 platelet count 244 BUN 24 creatinine 0.75 Testing in the emergency room revealed CT scan of the abdomen and pelvis revealed evidence of acute colitis in the mid to distal left colon Patient was admitted to medical floor for further evaluation and treatment Past medical history is significant for previous episodes of colitis, that patient describes as septic colitis, in 2006 2014 and 2020 On review of systems patient is alert and oriented x 3 in no apparent distress she is still complaining of abdominal cramping and pain mostly in the left lower quadrant she is also complaining of rectal bleeding otherwise she denies any complaints there is no fever or chills no headache or dizziness no chest pain no shortness of breath no cough no nausea or vomiting no burning with urination no frequency or urgency and no hematuria Past Medical History Past Medical History: Eye Disorder, GERD/Reflux Additional Past Medical History / Comment(s): RLS, septic colitis 2006, 2014 & 2020., BILAT GLAUCOMA History of Any Multi-Drug Resistant Organisms: None Reported Past Surgical History: Appendectomy, Orthopedic Surgery, Tonsillectomy, Uterine Ablation Additional Past Surgical History / Comment(s): Breast left biopsy. RIGHT Knee surgery, Ganglion wrist remove, COLONOSCOPY, LAPAROSCOPIES FOR FERTILITY YEARS AGO, BILAT LASIK SURGERY FOR GLAUCOMA Past Anesthesia/Blood Transfusion Reactions: No Reported Reaction, Motion Sickness Past Psychological History: No Psychological Hx Reported Smoking Status: Former smoker Past Alcohol Use History: None Reported Past Drug Use History: None Reported - Past Family History Father History Unknown: Yes Additional Family Medical History / Comment(s): Pt is adopted. Mother History Unknown: Yes Additional Family Medical History / Comment(s): Pt is adopted. Medications and Allergies Home Medications Medication Instructions Recorded Confirmed Type Carbidopa-Levodopa ER 50-200Mg 2 tab PO HS 09/05/16 01/11/24 History [Sinemet CR 50-200 mg] Pantoprazole Sodium [Protonix] 40 mg PO HS 01/11/24 01/11/24 History Allergies Allergy/AdvReac Type Severity Reaction Status Date / Time Iodinated Contrast Media Allergy Anaphylaxis Verified 01/11/24 11:46 [Iodinated Contrast Media - Oral and] iodine Allergy Anaphylaxis Verified 01/11/24 11:46 hydrocodone [From [place]] AdvReac Nausea Verified 01/11/24 11:46 Physical Exam Vitals: Vital Signs Temp Pulse Resp BP Pulse Ox 01/11/24 11:53 98.1 F 78 16 103/60 96 01/11/24 07:24 97.7 F 92 18 124/80 95 01/11/24 03:49 97.7 F 88 18 102/69 95 Intake and Output 01/11/24 01/11/24 01/11/24 06:59 14:59 22:59 Other: Weight 78.471 kg In general patient is alert and oriented x 3 in no distress HEENT head normocephalic and atraumatic Neck is supple no JVD no goiter no lymphadenopathy no carotid bruit Chest examination is clear to auscultation no crackles no wheezing Cardiac exam reveals regular heart sounds S1 and S2 no gallops no murmurs Abdomen is soft nontender no organomegaly with normal bowel sounds Extremity exam reveals no edema no cyanosis or clubbing Neurological examination reveals no gross focal deficits Results CBC & Chem 7: 01/11/24 08:11 01/11/24 03:55 Labs: Abnormal Lab Results - Last 24 Hours (Table) 01/11/24 01/11/24 01/11/24 Range/Units 03:55 03:55 03:55 WBC 13.5 H (3.8-10.6) k/uL Hct 48.1 H (34.0-46.0) % Neutrophils # 10.5 H (1.3-7.7) k/uL PT 9.9 L (10.0-12.5) sec Carbon Dioxide 31 H (22-30) mmol/L BUN 24 H (7-17) mg/dL Glucose 116 H (74-99) mg/dL Alkaline Phosphatase 132 H (38-126) U/L Urine Blood (Negative) Ur Leukocyte Esterase (Negative) Urine WBC (0-5) /hpf Urine Bacteria (None) /hpf Urine Mucus (None) /hpf 01/11/24 01/11/24 Range/Units 03:57 08:11 WBC 14.4 H (3.8-10.6) k/uL Hct (34.0-46.0) % Neutrophils # 11.4 H (1.3-7.7) k/uL PT (10.0-12.5) sec Carbon Dioxide (22-30) mmol/L BUN (7-17) mg/dL Glucose (74-99) mg/dL Alkaline Phosphatase (38-126) U/L Urine Blood Trace H (Negative) Ur Leukocyte Esterase Trace H (Negative) Urine WBC 6 H (0-5) /hpf Urine Bacteria Rare H (None) /hpf Urine Mucus Rare H (None) /hpf Assessment and Plan Plan: Acute colitis Rectal bleeding Previous history of infectious colitis Underlying history of gastroesophageal reflux disease Underlying history of glaucoma At this time patient was seen and examined Home medications reviewed and reordered She was started on IV antibiotic Unasyn and Flagyl Gastroenterology consultation requested Will follow closely
[2024-01-11] MEDS: AMPICILLIN-SULBACTAM 3 GM in SODIUM CHLORIDE 0.9% 100 ML IVPB SCH (17:38)
[2024-01-11] MEDS: metroNIDAZOLE-NS PMX 500 MG in SALINE 1 100ML.BAG IVPB SCH (19:15)
[2024-01-12 06:23] LABS: Basophils # (A) 0.1 k/uL (0-0.2); Basophils % (A) 1 %; Eosinophils # (A) 0.2 k/uL (0-0.7); Eosinophils % (A) 2 %; HCT 43.4 % (34.0-46.0); HGB 13.9 gm/dL (11.4-16.0); Lymphocytes # (A) 1.7 k/uL (1.0-4.8); Lymphocytes % (A) 17 %; MCH 30.4 pg (25.0-35.0); MCHC 32.1 g/dL (31.0-37.0); MCV 94.8 fL (80.0-100.0); Mean Platelet Volume 7.9; Monocytes # (A) 0.5 k/uL (0-1.0); Monocytes % (A) 5 %; Neutrophils # (A) 7.5 k/uL (1.3-7.7); Neutrophils % (A) 74 %; Platelet Count 224 k/uL (150-450); RBC 4.58 m/uL (3.80-5.40); RDW 13.3 % (11.5-15.5); WBC 10.2 k/uL (3.8-10.6)
[2024-01-12 06:35] LABS: ALT 26 U/L (4-34); AST 24 U/L (14-36); African American GFR (CKD) >90 (>60 ml/min/1.73 sqM); Albumin 3.3 g/dL (3.5-5.0); Alkaline Phosphatase 84 U/L (38-126); Anion Gap 5 mmol/L; Blood Urea Nitrogen 10 mg/dL (7-17); Calcium 8.3 mg/dL (8.4-10.2); Carbon Dioxide 24 mmol/L (22-30); Chloride 110 mmol/L (98-107); Glucose 83 mg/dL (74-99); Magnesium 2.1 mg/dL (1.6-2.3); Non-African American GFR(CKD) >90 (>60 ml/min/1.73 sqM); Phosphorus 3.4 mg/dL (2.5-4.5); Potassium 3.6 mmol/L (3.5-5.1); Sodium 139 mmol/L (137-145); Total Protein 5.9 g/dL (6.3-8.2)
--- NOTE | 2024-01-12 10:46 | P.PN ---
Subjective Progress Note Date: 01/12/24 Brandon Branch, is a 58-year-old female who presented to [facility] emergency room with a chief complaint of rectal bleeding and abdominal cramping and pain, symptoms started 2 days ago and has been worsening. She was evaluated in the emergency room vital examination on presentation revea led a temperature of 97.7 pulse 88 respiration 18 blood pressure 102/69 pulse ox 95% on room air Laboratory data revealed a white blood count of 14.4 hemoglobin 14.8 platelet count 244 BUN 24 creatinine 0.75 Testing in the emergency room revealed CT scan of the abdomen and pelvis revealed evidence of acute colitis in the mid to distal left colon Patient was admitted to medical floor for further evaluation and treatment Past medical history is significant for previous episodes of colitis, that bernadine pinedo describes as septic colitis, in 2006 2014 and 2020 On review of systems patient is alert and oriented x 3 in no apparent distress she is still complaining of abdominal cramping and pain mostly in the left lower quadrant she is also complaining of rectal bleeding otherwise she denies any complaints there is no fever or chills no headache or dizziness no chest pain no shortness of breath no cough no nausea or vomiting no burning with urination no frequency or urgency and no hematuri On 01/12/2024 patient is alert and oriented 3. Patient reports improvement with GI symptoms. Patient remains on IV antibiotics Unasyn and Flagyl. Awaiting GI input. Patient's coping to be DC'd home prior to colonoscopy. Current vital signs temp 98.9, heart rate 96, respiratory rate 17, blood pressure 144/78 with pulse ox 97% on room air.Patient started on clear liquid diet per GI services Objective - Vital Signs Vital signs: Vital Signs Temp 98.9 F 01/12/24 07:00 Pulse 96 01/12/24 07:00 Resp 17 01/12/24 07:00 BP 144/78 01/12/24 07:00 Pulse Ox 97 01/12/24 07:00 FiO2 Intake & Output 01/11/24 01/12/24 01/12/24 18:59 06:59 18:59 Intake Total 1190 Balance 1190 Weight 78.471 kg Intake: Intake, IV Titration 1190 Amount Ampicillin-Sulbactam 3 gm 50 In Sodium Chloride 0.9% 100 ml @ 200 mls/hr IVPB Q8HR [facility] Rx#:[id number] Sodium Chloride 0.9% 1, 1040 000 ml @ 130 mls/hr IV . Q7H42M [facility] Rx#:[id number] metroNIDAZOLE-NS PMX 500 100 mg In Saline 1 100ml.bag @ 100 mls/hr IVPB Q8HR [facility] Rx#:[id number] Other: # Voids 1 # Bowel Movements 1 - Exam In general patient is alert and oriented x 3 in no distress HEENT head normocephalic and atraumatic Neck is supple no JVD no goiter no lymphadenopathy no carotid bruit Chest examination is clear to auscultation no crackles no wheezing Cardiac exam reveals regular heart sounds S1 and S2 no gallops no murmurs Abdomen is soft nontender no organomegaly with normal bowel sounds Extremity exam reveals no edema no cyanosis or clubbing Neurological examination reveals no gross focal deficits - Labs CBC & Chem 7: 01/12/24 05:49 01/12/24 05:49 Labs: Abnormal Lab Results - Last 24 Hours (Table) 01/12/24 Range/Units 05:49 Chloride 110 H (98-107) mmol/L Calcium 8.3 L (8.4-10.2) mg/dL Total Protein 5.9 L (6.3-8.2) g/dL Albumin 3.3 L (3.5-5.0) g/dL Assessment and Plan Plan: Acute colitis Rectal bleeding Previous history of infectious colitis Underlying history of gastroesophageal reflux disease Underlying history of glaucoma History of restless leg syndrome maintained on Sinemet At this time patient was seen and examined Home medications reviewed and reordered She was started on IV antibiotic Unasyn and Flagyl Gastroenterology consultation requested Will follow closely
--- NOTE | 2024-01-12 14:09 | P.PN ---
Subjective Progress Note Date: 01/12/24 patient states she feels better. On exam vital signs appear stable. Abdomen is soft with minimal tenderness. Colitis. Patient will be scheduled for colonoscopy on . She could also have this performed as outpatient if she wishes. Objective - Vital Signs Vital signs: Vital Signs Temp 98.9 F 01/12/24 07:00 Pulse 96 01/12/24 07:00 Resp 17 01/12/24 07:00 BP 144/78 01/12/24 07:00 Pulse Ox 97 01/12/24 07:00 FiO2 Intake & Output 01/11/24 01/12/24 01/12/24 18:59 06:59 18:59 Intake Total 1190 Balance 1190 Weight 78.471 kg Intake: Intake, IV Titration 1190 Amount Ampicillin-Sulbactam 3 gm 50 In Sodium Chloride 0.9% 100 ml @ 200 mls/hr IVPB Q8HR [facility] Rx#:[id number] Sodium Chloride 0.9% 1, 1040 000 ml @ 130 mls/hr IV . Q7H42M [facility] Rx#:[id number] metroNIDAZOLE-NS PMX 500 100 mg In Saline 1 100ml.bag @ 100 mls/hr IVPB Q8HR [facility] Rx#:[id number] Other: # Voids 1 # Bowel Movements 1 - Labs CBC & Chem 7: 01/12/24 05:49 01/12/24 05:49 Labs: Abnormal Lab Results - Last 24 Hours (Table) 01/12/24 Range/Units 05:49 Chloride 110 H (98-107) mmol/L Calcium 8.3 L (8.4-10.2) mg/dL Total Protein 5.9 L (6.3-8.2) g/dL Albumin 3.3 L (3.5-5.0) g/dL
--- NOTE | 2024-01-12 15:35 | P.CONS ---
History of Present Illness - Reason for Consult Consult date: 01/12/24 Colitis Requesting physician: Sai Daly - Chief Complaint Rectal bleeding, abdominal pain - History of Present Illness This is a pleasant 58-year-old female who presented to the emergency department yesterday with complaints of abdominal cramping, diarrhea and rectal bleeding. Patient has a history of previous acute colitis in 2006, 2014 2020 and again now. She states she was told it was septic colitis. She has had a colonoscopy in 2006 2014 and again in July 2021 which was done by Dr. Llanos. Colonoscopy in July 2021 reported normal colon other than scattered diverticulosis. She states that she had started Thursday evening with some abdominal cramping and diarrhea which then turned into just bright red blood. The bleeding had subsided then she had more loose bowel movements without bleeding however bleeding then return. Last bloody bowel movement was 7 PM yesterday. She states she feels a little bloating but no abdominal pain at this time. Patient had leukocytosis on admission with a WBC 14.4 initial hemoglobin 15.3 with a repeat today of 13.9. She denies any anticoagulation. Stool C. difficile negative. Stool cultures pending. CT abdomen pelvis with contrast reports acute colitis, gastroenterology consulted for colitis. Patient was started on Unasyn and Flagyl. Review of Systems REVIEW OF SYSTEMS: CARDIOPULMONARY: No chest pain or shortness of breath. Gastrointestinal: Left lower abdominal cramping and tenderness. No nausea or vomiting. No hematemesis, coffee-ground emesis. Diarrhea for about 24 hours with bright red blood. GENITOURINARY: No dysuria or hematuria. MUSCULOSKELETAL: Reports normal range of motion. SKIN: No rashes. No jaundice. ENDOCRINE: No chills, fevers. No excessive weight gain or loss. No polydipsia or polyuria. PSYCHIATRIC: Unremarkable. NEUROLOGY: No change in mental status. Denies dizziness, headache. ENT: Vision unremarkable. CONSTITUTIONAL: No recent weight loss. No fever, chills, night sweats. Past Medical History Past Medical History: Eye Disorder, GERD/Reflux Additional Past Medical History / Comment(s): RLS, septic colitis 2006, 2014 & 2020., BILAT GLAUCOMA History of Any Multi-Drug Resistant Organisms: None Reported Past Surgical History: Appendectomy, Orthopedic Surgery, Tonsillectomy, Uterine Ablation Additional Past Surgical History / Comment(s): Breast left biopsy. RIGHT Knee surgery, Ganglion wrist remove, COLONOSCOPY, LAPAROSCOPIES FOR FERTILITY YEARS AGO, BILAT LASIK SURGERY FOR GLAUCOMA Past Anesthesia/Blood Transfusion Reactions: No Reported Reaction, Motion Si ckness Past Psychological History: No Psychological Hx Reported Smoking Status: Former smoker Past Alcohol Use History: None Reported Past Drug Use History: None Reported - Past Family History Father History Unknown: Yes Additional Family Medical History / Comment(s): Pt is adopted. Mother History Unknown: Yes Additional Family Medical History / Comment(s): Pt is adopted. Medications and Allergies Home Medications Medication Instructions Recorded Confirmed Type Carbidopa-Levodopa ER 50-200Mg 2 tab PO HS 09/05/16 01/11/24 History [Sinemet CR 50-200 mg] Pantoprazole Sodium [Protonix] 40 mg PO HS 01/11/24 01/11/24 History Allergies Allergy/AdvReac Type Severity Reaction Status Date / Time Iodinated Contrast Media Allergy Anaphylaxis Verified 01/11/24 11:46 [Iodinated Contrast Media - Oral and] iodine Allergy Anaphylaxis Verified 01/11/24 11:46 hydrocodone [From [place]] AdvReac Nausea Verified 01/11/24 11:46 Physical Exam Vitals: Vital Signs Temp Pulse Pulse Resp BP BP Pulse Ox 01/12/24 07:00 98.9 F 96 17 144/78 97 01/12/24 02:00 98 F 87 18 107/72 98 01/11/24 21:21 97.9 F 83 17 128/78 01/11/24 17:17 98.4 F 94 16 140/77 98 01/11/24 11:53 98.1 F 78 16 103/60 96 Intake and Output 01/11/24 01/12/24 01/12/24 22:59 06:59 14:59 Intake Total 1190 Balance 1190 Intake: Intake, IV Titration 1190 Amount Ampicillin-Sulbactam 3 gm 50 In Sodium Chloride 0.9% 100 ml @ 200 mls/hr IVPB Q8HR [facility] Rx#:[id number] Sodium Chloride 0.9% 1, 1040 000 ml @ 130 mls/hr IV . Q7H42M [facility] Rx#:[id number] metroNIDAZOLE-NS PMX 500 100 mg In Saline 1 100ml.bag @ 100 mls/hr IVPB Q8HR [facility] Rx#:[id number] Other: # Voids 1 1 # Bowel Movements 1 Weight 78.471 kg General appearance: The patient is alert, oriented, appears in no acute distress. HET: Head is normocephalic and atraumatic. Conjunctiva pink. Sclera anicteric. Neck: Supple without lymphadenopathy. Trachea midline. Heart: Regular. Lungs: Equal expansion, normal respiratory effort. Abdomen: Soft, left lower quadrant tenderness, nondistended. Skin: No rashes. No jaundice. Extremities: Normal skin color and turgor. No pedal edema. Neurological: No focal deficits. Alert and oriented x3. Results CBC & Chem 7: 01/12/24 05:49 01/12/24 05:49 Labs: Abnormal Lab Results - Last 24 Hours (Table) 01/11/24 01/12/24 Range/Units 08:11 05:49 WBC 14.4 H (3.8-10.6) k/uL Neutrophils # 11.4 H (1.3-7.7) k/uL Chloride 110 H (98-107) mmol/L Calcium 8.3 L (8.4-10.2) mg/dL Total Protein 5.9 L (6.3-8.2) g/dL Albumin 3.3 L (3.5-5.0) g/dL Comments: CT abdomen pelvis with contrast reports acute colitis is present at least involving mid to distal left colon in the left lower quadrant. Differential includes infectious, inflammatory and ischemic etiologies. Clinical correlation and follow-up is advised. Assessment and Plan (1) Colitis Narrative/Plan: 58-year-old female with history of acute colitis in the past likely ischemic however need to consider infectious as well. Patient was presenting with leukocytosis and started on Unasyn and Flagyl. Most recent colonoscopy was in July 2021 following a acute colitis in December 2020. During that colonoscopy colon was normal other than scattered diverticulosis. As this is patient's fourth recurrent episode of colitis recommend proceeding with colonoscopy at this time. Patient is agreeable. Will start prep and plan for colonoscopy tomorrow. Current Visit: Yes Status: Acute Code(s): K52.9 - NONINFECTIVE GASTROE NTERITIS AND COLITIS, UNSPECIFIED SNOMED Code(s): 46522787 (2) Rectal bleeding Current Visit: Yes Status: Acute Code(s): K62.5 - HEMORRHAGE OF ANUS AND RECTUM SNOMED Code(s): 75794530 Plan: 1. Continue symptomatic and supportive care 2. Clear liquid diet n.p.o. after midnight 3. Start bowel prep this afternoon 4. Plan for colonoscopy tomorrow 5. Daily CBC, transfuse for hemoglobin less than 7 6. Pain medication as needed 7. Continue antibiotics for now Thank you for this consultation, we will continue to follow. Dr. Bjorn Lalnos I agree with the dictator's note, documented as a scribe by Nikia BAR .
[2024-01-12] MEDS: PEG 3350 (236 GM/BTL) + LYTES 4,000 ML BOTTLE PO ONE (16:53)
[2024-01-12] MEDS ORDERED: PANTOPRAZOLE 40 MG TABLET PO SCH (21:00)
[2024-01-12] MEDS: CARBIDOPA-LEVODOPA ER 50-200MG 1 EACH TABLET.ER PO SCH (21:00)
[2024-01-13 01:54] VITALS: RESP 16
[2024-01-13 06:47] LABS: Basophils # (A) 0.1 k/uL (0-0.2); Basophils % (A) 1 %; Eosinophils # (A) 0.3 k/uL (0-0.7); Eosinophils % (A) 2 %; HCT 42.6 % (34.0-46.0); HGB 13.6 gm/dL (11.4-16.0); Lymphocytes # (A) 1.5 k/uL (1.0-4.8); Lymphocytes % (A) 14 %; MCH 29.9 pg (25.0-35.0); MCHC 31.9 g/dL (31.0-37.0); MCV 93.8 fL (80.0-100.0); Mean Platelet Volume 8.1; Monocytes # (A) 0.5 k/uL (0-1.0); Monocytes % (A) 5 %; Neutrophils # (A) 8.8 k/uL (1.3-7.7); Neutrophils % (A) 78 %; Platelet Count 243 k/uL (150-450); RBC 4.54 m/uL (3.80-5.40); RDW 13.2 % (11.5-15.5); WBC 11.4 k/uL (3.8-10.6)
[2024-01-13 06:56] LABS: ALT <6 U/L (4-34); AST 22 U/L (14-36); African American GFR (CKD) >90 (>60 ml/min/1.73 sqM); Albumin 3.6 g/dL (3.5-5.0); Alkaline Phosphatase 83 U/L (38-126); Anion Gap 4 mmol/L; Blood Urea Nitrogen 5 mg/dL (7-17); Calcium 8.8 mg/dL (8.4-10.2); Carbon Dioxide 27 mmol/L (22-30); Chloride 108 mmol/L (98-107); Glucose 103 mg/dL (74-99); Non-African American GFR(CKD) >90 (>60 ml/min/1.73 sqM); Potassium 3.8 mmol/L (3.5-5.1); Sodium 139 mmol/L (137-145); Total Bilirubin 1.2 mg/dL (0.2-1.3); Total Protein 6.1 g/dL (6.3-8.2)
[2024-01-13] MEDS: IV FLUID CONTINUATION 200 ML IV ONE (08:09)
[2024-01-13] MEDS ORDERED: PROPOFOL 10 MG/ML 20 ML VIAL IV ONE (08:16)
--- NOTE | 2024-01-13 08:33 | P.PCN ---
Date of Procedure: 01/13/24 Procedure(s) Performed: BRIEF HISTORY: Patient is a 58-year-old pleasant white female scheduled for an elective colonoscopy as a part of evaluation of lower abdominal pain followed by diarrhea and rectal bleeding of 2 days duration. She was admitted to hospital and hemoglobin was 13 g/dL. She had a similar episode in 2006, 2049, 2020 and last colonoscopy in 2020 was unremarkable. CAT scan of the abdomen showed thickening of the left colon. PROCEDURE PERFORMED: Colonoscopy with biopsy. PREOPERATIVE DIAGNOSIS: Lower abdominal pain and rectal bleeding. IV sedation per Anesthesia. PROCEDURE: After informed consent was obtained, the patient, was brought into the endoscopy unit. IV sedation was administered by Anesthesia under continuous monitoring. Digital rectal examination was normal. Initially the Olympus CF-160 flexible video colonoscope was then inserted in the rectum, gradually advanced into the cecum without any difficulty. Careful examination was performed as the scope was gradually being withdrawn. Ileocecal valve and the appendiceal orifice were visualized and appeared normal. Prep was excellent. Mucosa of the cecum, ascending colon, transverse colon, appeared normal. There was acute colitis with mucosal erythema, edema, bluish discoloration of the distal descending col on and proximal sigmoid colon extending from 30 to 55 cm from anal verge and multiple biopsies were done from this area. The distal sigmoid colon, and rectum appeared normal. Scattered sigmoid diverticulosis seen. Retroflexion was performed in the rectum and no lesions were seen. The patient tolerated the procedure well. IMPRESSION: Segmental colitis involving the proximal sigmoid colon and distal descending colon extending from 30 to 55 cm from the anal verge with mucosal erythema, congestion and bluish discoloration all consistent with acute ischemic colitis Rest of the colon appeared normal Scattered sigmoid diverticulosis RECOMMENDATIONS: Findings of this examination were discussed with the patient as well as her family. She was advised to follow-up with the biopsy results. Advance to soft diet. She can be discharged home with outpatient follow-up in 2 weeks..
[2024-01-13 08:52] VITALS: TEMP 98
--- NOTE | 2024-01-13 10:42 | P.DS ---
Providers Date of admission: 01/12/24 07:52 Expected date of discharge: 01/13/24 Attending physician: Sai Daly Consults: 01/11/24 08:31 Consult Physician Routine Consulting Provider: Edmundo Knutson Consult Reason/Comments: colitis Do you want consulting provider notified?: Yes 01/11/24 16:50 Consult Physician Routine Consulting Provider: Gifty Llanos Consult Reason/Comments: colitis Do you want consulting provider notified?: Yes Primary care physician: Diana Garza [place] [facility] Course: discharge diagnosis Acute colitis Rectal bleeding Previous history of infectious colitis Underlying history of gastroesophageal reflux disease Underlying history of glaucoma History of restless leg syndrome maintained on Sinemet Hospital Course Brandon Branch, is a 58-year-old female who presented to [facility] emergency room with a chief complaint of rectal bleeding and abdominal cramping and pain, symptoms started 2 days ago and has been worsening. She was evaluated in the emergency room vital examination on presentation revealed a temperature of 97.7 pulse 88 respiration 18 blood pressure 102/69 pulse ox 95% on room air Laboratory data revealed a white blood count of 14.4 hemoglobin 14.8 platelet count 244 BUN 24 creatinine 0.75 Testing in the emergency room revealed CT scan of the abdomen and pelvis revealed evidence of acute colitis in the mid to distal left colon Patient was admitted to medical floor for further evaluation and treatment Past medical history is significant for previous episodes of colitis, that patient describes as septic colitis, in 2006 2014 and 2020 On review of systems patient is alert and oriented x 3 in no apparent distress she is still complaining of abdominal cramping and pain mostly in the left lower quadrant she is also complaining of rectal bleeding otherwise she denies any complaints there is no fever or chills no headache or dizziness no chest pain no shortness of breath no cough no nausea or vomiting no burning with urination no frequency or urgency and no hematuri On 01/12/2024 patient is alert and oriented 3. Patient reports improvement with GI symptoms. Patient remains on IV antibiotics Unasyn and Flagyl. Awaiting GI input. Patient's coping to be DC'd home prior to colonoscopy. Current vital signs temp 98.9, heart rate 96, respiratory rate 17, blood pressure 144/78 with pulse ox 97% on room air.Patient started on clear liquid diet per GI services Discharge diagnosis on 01/13/2024 patient is alert and oriented x 3 status post colonoscopy with Dr. Elizabeth this a.m. showing segmental colitis involving the proximal sigmoid colon and distal descending colon recommendations per ID patient may be DC'd home and follow-up outpatient in 2 weeks. Discussed case with GI nurse practitioner per GI services no need for antibiotics upon discharge. At this time patient denies chest pain or shortness of breath. Patient denies nausea vomiting or diarrhea. Patient denies any urinary burning or frequency Patient Condition at Discharge: Stable Plan - Discharge Summary New Discharge Prescriptions: Continue Carbidopa-Levodopa ER 50-200Mg [Sinemet CR 50-200 mg] 2 tab PO HS Pantoprazole Sodium [Protonix] 40 mg PO HS Discharge Medication List Carbidopa-Levodopa ER 50-200Mg [Sinemet CR 50-200 mg] 2 tab PO HS 09/05/16 [History] Pantoprazole Sodium [Protonix] 40 mg PO HS 01/11/24 [History] Follow up Appointment(s)/Referral(s): Diana Garza MD [Primary Care Provider] - 1-2 days Gifty Llanos MD [STAFF PHYSICIAN] - 2 Weeks Edmundo Knutson MD [STAFF PHYSICIAN] - 1 Week Patient Instructions/Handouts: Ischemic Colitis (DC) Discharge Disposition: HOME SELF-CARE
--- NOTE | 2024-01-13 12:51 | P.PN ---
Subjective Progress Note Date: 01/13/24 CHIEF COMPLAINT: Abdominal pain HISTORY OF PRESENT ILLNESS: Patient presented with abdominal pain and blood in her stools. She is status post colonoscopy with GI service that reported segmental colitis involving the proximal sigmoid colon and distal descending colon congestion and bluish discoloration all consistent with acute ischemic colitis and scattered sigmoid diverticulosis. Patient did have blood in her stools while she was doing bowel prep yesterday. Since then she has had no further bowel movements no blood from rectum. Afebrile. WBC is 11.4 Hgb stable at 13.6. Patient cleared by GI service for discharge Patient seen and examined with Dr. Knutson PHYSICAL EXAM: VITAL SIGNS: Reviewed. GENERAL: Well-developed in no acute distress. ABDOMEN: Soft. Nondistended. Mild tenderness left lower quadrant NEUROLOGIC: Alert and oriented. Cranial nerves II through XII grossly intact. ASSESSMENT: 1. Abdominal pain with colonoscopy reporting findings of acute ischemic colitis and scattered sigmoid diverticulosis PLAN: -Patient can be discharged from surgical standpoint -Agree with GI follow-up outpatient. Follow-up on pathology results. Physician Certified Orthotist note has been reviewed by physician. Signing provider agrees with the documented findings, assessment, and plan of care. Objective - Vital Signs Vital signs: Vital Signs Temp 98 F 01/13/24 08:40 Pulse 82 01/13/24 09:40 Resp 16 01/13/24 08:40 BP 132/90 01/13/24 09:40 Pulse Ox 99 01/13/24 09:40 FiO2 Intake & Output 01/12/24 01/13/24 01/13/24 18:59 06:59 18:59 Intake Total 100 Balance 100 Intake: IV 100 Other: # Voids 1 # Bowel Movements 3 3 - Labs CBC & Chem 7: 01/13/24 06:14 01/13/24 06:14 Labs: Abnormal Lab Results - Last 24 Hours (Table) 01/13/24 01/13/24 Range/Units 06:14 06:14 WBC 11.4 H (3.8-10.6) k/uL Neutrophils # 8.8 H (1.3-7.7) k/uL Chloride 108 H (98-107) mmol/L BUN 5 L (7-17) mg/dL Glucose 103 H (74-99) mg/dL Total Protein 6.1 L (6.3-8.2) g/dL Microbiology - Last 24 Hours (Table) 01/11/24 09:15 Blood Culture - Preliminary Blood 01/11/24 09:00 Blood Culture - Preliminary Blood
[2024-01-13 13:19] VITALS: BP 122/83; PULSE 83
== END 2024-01-13 14:13 | disposition home or self-care (01) ==
LOC: EC 03:47 → 6NMEDSUR 08:31 → 1SOBS 15:57 → OBSVTOIN 01-12 07:52 → INTOOBSV 01-12 07:52 → UNDODISIN 01-13 14:13
PROVIDERS: ADMIT Internal Medicine; ATTEND Internal Medicine
DX: K50.111 Crohn's disease of large intestine with rectal bleeding (principal); K57.31 Diverticulosis of large intestine without perforation or abscess with bleeding; K21.9 Gastro-esophageal reflux disease without esophagitis; H40.9 Unspecified glaucoma; G25.81 Restless legs syndrome; Z87.891 Personal history of nicotine dependence; Z79.899 Other long term (current) drug therapy; Z88.5 Allergy status to narcotic agent
CPT/HCPCS: 96361 ×2; 96366 ×3; 96367; 96376 ×3; 96365; 96375; 99285; 36415; 88305; 80053 ×3; 83605; 83690; 83735; 84100; 85025 ×3; 85610; 85730; 81001; 87040; 87324; 74176; 45380; G0378 ×3; J2270; J1200; J2765; J2405; J0295 ×3; J2704; C9113 ×3; J1170; J1836 ×3

== ENCOUNTER → 2024-01-20 | Outpatient (CLI) | payer OTHER ==
--- NOTE | 2024-01-26 11:45 | MM ---
Reason for Exam: Screening (asymptomatic). Last mammogram was performed 1 year(s) and 1 month(s) ago. Patient History: Menarche at age 13. First Full-Term at age 23. 2006, Benign Excisional Biopsy on the left side. 07/04/2020, US discontinued breast bx LT on the left side. Risk Values: Nataly 5 year model risk: 1.3%. NCI Lifetime model risk: 7.2%. Prior Study Comparison: 05/02/2020 Bilateral Screening Mammogram, [facility]. 01/02/2021 Left Diagnostic Mammogram, [facility]. 01/01/2023 Bilateral MG 3D screening mammo w/cad, [facility]. Tissue Density: The breasts are heterogeneously dense, which may obscure small masses. Findings: Analyzed By CAD. Right breast: There is no suspicious group of microcalcifications or new suspicious mass. Left breast: There is no suspicious group of microcalcifications or new suspicious mass. Overall Assessment: Negative, BI-RAD 1 Management: Screening Mammogram of both breasts in [address] [facility] will attempt to contact patient to return for supplemental views and ultrasound if indicated. Patient should continue monthly self-breast exams. A clinical breast exam by your physician is recommended on an annual basis. This exam should not preclude additional follow-up of suspicious palpable abnormalities. Note on Nataly scores and lifetime risk: 1. A Nataly score greater than 3% is considered moderate risk. If this is the case, consider specialist referral to assess eligibility for a risk reducing agent. 2. If overall lifetime risk for the development of breast cancer is 20% or higher, the patient may qualify for future screening with alternating mammogram and breast MRI. Electronically signed and approved by: Agustin Ragsdale DO
== END | disposition home or self-care (01) ==
LOC: RADMAMWWP 15:48
PROVIDERS: ATTEND Family Medicine
DX: Z12.31 Encounter for screening mammogram for malignant neoplasm of breast (principal)
CPT/HCPCS: 77063; 77067

== ENCOUNTER → 2024-03-16 | Outpatient (CLI) | payer OTHER ==
--- NOTE | 2024-04-14 16:00 | MR ---
Site ID [facility] Patient Olya Branch A ID [id number] Age/Gender: 59Y, F Order # N/A Procedure MRA ABDOMEN WO/W CONTRAST Date 03/16/2024 7:30:00 AM INDICATION: Patient age: Female; 59 year old; Reason for study: Reversible ischemia of the large intestines COMPARISON: CT abdomen and pelvis 01/28/2024, 01/03/2021 TECHNIQUE: Multiplanar, multi-sequence imaging as well as [id number] and contrast enhanced imagin g was performed of the abdomen and pelvis before and after contrast. The patient was given 8 cc of G adavist intravenously. Maximum intensity projection reformatted images were submitted for evaluation. FINDINGS: Pulsation artifact identified. MAGNETIC RESONANCE ANGIOGRAPHY: The abdominal aorta does not demonstrate aneurysmal dilatation. The origins of the superior mesenteric artery, renal arteries, inferior mesenteric artery, and celiac ax is are patent. The iliac vessels are normal in morphology. Somewhat beaded appearance of the SMA an d its branches which are diminutive after the origins. Additional beaded appearance of the common hep atic artery. No evidence for aneurysm. No visualized large vessel occlusion. Abdomen: The liver, spleen, adrenal glands, kidneys, and pancreas do appear unremarkable. IMPRESSION: 1. Somewhat beaded appearance of the SMA and its branches with additional involvement of the common hepatic artery. Etiologies include inflammatory arthritides versus segmental arterial medial lysis ve rsus other. Consider further evaluation with direct angiography is recommended. 2. No evidence of aneurysm.
== END | disposition home or self-care (01) ==
LOC: RADMRIMAIN 08:15
PROVIDERS: ATTEND Internal Medicine Gastroenterology
DX: K55.039 Acute (reversible) ischemia of large intestine, extent unspecified (principal); G12.9 Spinal muscular atrophy, unspecified
CPT/HCPCS: 74185; A9585

== ENCOUNTER 2024-08-13 14:45 | Emergency (ER) | payer OTHER ==
--- NOTE | 2024-08-13 15:14 | XR ---
EXAMINATION TYPE: XR ribs LT DATE OF EXAM: 08/13/2024 3:08 PM COMPARISON: None available. CLINICAL INDICATION: Female, 59 years old with history of pain; H TECHNIQUE: XR ribs LT; Frontal and oblique views of the ribs with frontal chest radiograph. FINDINGS: The ribs have a normal appearance. No evidence of fracture. Overall, the lungs are clear. The cardiac silhouette is normal in size. The remaining osseous structures are intact. IMPRESSION: No acute osseous pathology. [facility], , 08/13/2024 3:11 PM
--- NOTE | 2024-08-13 16:38 | ED ---
Back Pain HPI - General Chief Complaint: Back Pain/Injury Stated Complaint: R side rib pain Time Seen by Provider: 08/13/24 16:36 Source: patient, family, RN notes reviewed Limitations: physical limitation - History of Present Illness Initial Comments: 59-year-old female presenting for left rib pain x 2 weeks. States she had a upper respiratory infection a couple weeks ago and thought she may have strained the muscles in her left ribs from coughing. Today she was at work when she suddenly coughed and felt a pop in her left ribs. She now reports her muscle spasming in her left ribs and severe pain. Denies chest pain or shortness of breath. - Related Data Home Medications Medication Instructions Recorded Confirmed Carbidopa-Levodopa ER 50-200Mg 2 tab PO HS 09/05/16 01/11/24 [Sinemet CR 50-200 mg] Pantoprazole Sodium [Protonix] 40 mg PO HS 01/11/24 01/11/24 Previous Rx's Medication Instructions Recorded Cyclobenzaprine [Flexeril] 10 mg PO TID PRN #15 tab 08/13/24 Lidocaine 4% Patch 1 patch TOPICAL DAILY PRN 7 Days 08/13/24 #7 patch Naproxen 500 mg PO Q12H PRN #30 tab 08/13/24 Allergies Allergy/AdvReac Type Severity Reaction Status Date / Time Iodinated Contrast Media Allergy Anaphylaxis Verified 08/13/24 14:51 [Iodinated Contrast Media - Oral and] iodine Allergy Anaphylaxis Verified 08/13/24 14:51 hydrocodone [From [place]] AdvReac Nausea Verified 08/13/24 14:51 Review of Systems ROS Statement: Those systems with pertinent positive or pertinent negative responses have been documented in the HPI. ROS Other: All systems not noted in ROS Statement are negative. Past Medical History Past Medical History: Eye Disorder, GERD/Reflux Additional Past Medical History / Comment(s): RLS, septic colitis 2006, 2014 & 2020., BILAT GLAUCOMA History of Any Multi-Drug Resistant Organisms: None Reported Past Surgical History: Appendectomy, Orthopedic Surgery, Tonsillectomy, Uterine Ablation Additional Past Surgical History / Comment(s): Breast left biopsy. RIGHT Knee surgery, Ganglion wrist remove, COLONOSCOPY, LAPAROSCOPIES FOR FERTILITY YEARS AGO, BILAT LASIK SURGERY FOR GLAUCOMA Past Anesthesia/Blood Transfusion Reactions: No Reported Reaction, Motion Sickness Past Psychological History: No Psychological Hx Reported Smoking Status: Former smoker Past Alcohol Use History: None Reported Past Drug Use History: None Reported - Past Family History Father History Unknown: Yes Additional Family Medical History / Comment(s): Pt is adopted. Mother History Unknown: Yes Additional Family Medical History / Comment(s): Pt is adopted. General Exam Limitations: physical limitation General appearance: alert, in no apparent distress Head exam: Present: atraumatic, normocephalic, normal inspection Respiratory exam: Present: normal lung sounds bilaterally. Absent: respiratory distress, wheezes, rales, rhonchi, stridor, chest wall tenderness Cardiovascular Exam: Present: regular rate, normal rhythm, normal heart sounds. Absent: systolic murmur, diastolic murmur, rubs, gallop, clicks Neurological exam: Present: alert, oriented X3 Psychiatric exam: Present: normal affect, normal mood Skin exam: Present: warm, dry, intact, normal color. Absent: rash Course Vital Signs 08/13/24 08/13/24 14:51 17:17 Temperature 97.5 F L 98.3 F Pulse Rate 82 74 Respiratory 22 18 Rate Blood Pressure 128/89 156/92 O2 Sat by Pulse 98 96 Oximetry Medical Decision Making - Medical Decision Making Was pt. sent in by a medical professional or institution (, PA, SENIOR RESEARCH ASSOCIATE, urgent care, hospital, or custodial...) When possible be specific @ -No Did you speak to anyone other than the patient for history (EMS, parent, family, police, friend...)? What history was obtained from this source @ -No Did you review nursing and triage notes (agree or disagree)? Why? @ -I reviewed and agree with nursing and triage notes Were old charts reviewed (outside hosp., previous admission, EMS record, old EKG, old radiological studies, urgent care reports/EKG's, custodial records)? Report findings @ -No old charts were reviewed Differential Diagnosis (chest pain, altered mental status, abdominal pain women, abdominal pain men, vaginal bleeding, weakness, fever, dyspnea, syncope, headache, dizziness, GI bleed, back pain, seizure, CVA, palpatations, mental health, musculoskeletal)? @ -Differential Musculoskeletal Muscular strain, contusion, ligament sprain, fracture, arthritis, septic arthritis, bursitis, cellulitis, muscle spasm, nerve compression, DVT, arterial occlusion, herpes zoster, electrolyte abnormality, tumor.... This is not meant to be in all inclusive list EKG interpreted by me (3pts min.). @ -None X-rays interpreted by me (1pt min.). @ -X-ray left ribs reveals no acute process CT interpreted by me (1pt min.). @ -None done U/S interpreted by me (1pt. min.). @ -None done What testing was considered but not performed or refused? (CT, X-rays, U/S, labs)? Why? @ -None What meds were considered but not given or refused? Why? @ -None Did you discuss the management of the patient with other professionals (professionals i.e. , PA, SENIOR RESEARCH ASSOCIATE, lab, RT, psych nurse, social media content specialist, mortgage professional, teacher, correction officer city or county jail, case work aide)? Give summary @ -No Was smoking cessation discussed for >3mins.? @ -No Was critical care preformed (if so, how long)? @ -No Were there social determinants of health that impacted care today? How? (Homelessness, low income, unemployed, alcoholism, drug addiction, transportation, low edu. Level, literacy, decrease access to med. care, retirement, rehab)? @ -No Was there de-escalation of care discussed even if they declined (Discuss DNR or withdrawal of care, Hospice)? DNR status @ -No What co-morbidities impacted this encounter? (DM, HTN, Smoking, COPD, CAD, Cancer, CVA, ARF, Chemo, Hep., AIDS, mental health diagnosis, sleep apnea, morbid obesity)? @ -None Was patient admitted / discharged? Hospital course, mention meds given and route, prescriptions, significant lab abnormalities, going to OR and other pertinent info. @ -Discharge. This is a 59-year-old female presenting with left rib pain. Patient states she coughed today and felt a pop in the left side. Patient was provided with analgesics. X-ray left rib reveals no acute process. Results discussed with patient. Discussed diagnosis of left rib strain. Appropriate return precautions and supportive care discussed. Case was discussed with my ED attending Dr. Tirado Undiagnosed new problem with uncertain prognosis? @ -No Drug Therapy requiring intensive monitoring for toxicity (Heparin, Nitro, Insulin, Cardizem)? @ -No Were any procedures done? @ -No Diagnosis/symptom? @ -Left rib strain Acute, or Chronic, or Acute on Chronic? @ -Acute Uncomplicated (without systemic symptoms) or Complicated (systemic symptoms)? @ -Uncomplicated Side effects of treatment? @ -No Exacerbation, Progression, or Severe Exacerbation? @ -No Poses a threat to life or bodily function? How? (Chest pain, USA, MS, pneumonia, PE, COPD, DKA, ARF, appy, cholecystitis, CVA, Diverticulitis, Homicidal, Suicidal, threat to staff... and all critical care pts) @ -No Disposition Clinical Impression: Rib pain on right side Disposition: HOME SELF-CARE Condition: Stable Instructions (If sedation given, give patient instructions): Rib Contusion (ED) Additional Instructions: Take muscle relaxers, anti-inflammatories, and lidocaine patches as needed for pain. Please return to the Emergency Department if symptoms worsen or any other concerns. Prescriptions: Cyclobenzaprine [Flexeril] 10 mg PO TID PRN #15 tab PRN Reason: Muscle Spasm Lidocaine 4% Patch 1 patch TOPICAL DAILY PRN 7 Days #7 patch PRN Reason: Pain Naproxen 500 mg PO Q12H PRN #30 tab PRN Reason: Pain Is patient prescribed a controlled substance at d/c from ED?: No Referrals: Diana Garza MD [Primary Care Provider] - 1-2 days Time of Disposition: 16:55
[2024-08-13] MEDS: LIDOCAINE 4% PATCH TOPICAL ONE (16:51)
[2024-08-13] MEDS: ORPHENADRINE 30 MG/ML 2 ML VIAL IM STA (16:51)
[2024-08-13] MEDS: KETOROLAC 15 MG/ML 1 ML VIAL IM STA (16:51)
[2024-08-13 17:20] VITALS: BP 156/92; PULSE 74; RESP 18; TEMP 98.3
== END 2024-08-13 17:19 | disposition home or self-care (01) ==
LOC: EC 14:45
DX: R07.81 Pleurodynia (principal); Z91.041 Radiographic dye allergy status; Z88.4 Allergy status to anesthetic agent; Z88.5 Allergy status to narcotic agent; Z87.891 Personal history of nicotine dependence
CPT/HCPCS: 71100; 99283; 96372 ×2; J2360; J1885

== ENCOUNTER → 2025-01-27 | Outpatient (CLI) | payer OTHER ==
--- NOTE | 2025-01-27 18:50 | CA ---
Transthoracic Echo Report Name: Brandon Branch Age: 59 Gender: F : 1965 Exam Date: 01/27/2025 12:53 Exam Location: [place] [facility] Ht (in): 63 Wt (lb): 170 Ordering Physician: Shannan Vitale MD Attending/Referring Phys: Shannan Vitale MD [employer] Manager Jayro Holland IRAIS Procedure CPT: Indications: I99.9 UNSPECIFIED DISORDER OF CIRCULATORY SYSTEM Cardiac Hx: Technical Quality: Poor Contrast 1: Total Dose (mL): Contrast 2: Total Dose (mL): MEASUREMENTS (Male / Female) Normal Values 2D ECHO LV Diastolic Diameter PLAX 4.5 cm 4.2 - 5.9 / 3.9 - 5.3 cm LV Systolic Diameter PLAX 3.2 cm IVS Diastolic Thickness 1.0 cm 0.6 - 1.0 / 0.6 - 0.9 cm LVPW Diastolic Thickness 1.0 cm 0.6 - 1.0 / 0.6 - 0.9 cm LV Relative Wall Thickness 0.4 RV Internal Dim ED PLAX 3.0 cm LVOT Diameter 1.8 cm LA Systolic Diameter LX 3.2 cm 3.0 - 4.0 / 2.7 - 3.8 cm LV Diastolic Volume MOD BP 62.6 cm??? 67 - 155 / 56 - 104 cm??? LV Systolic Volume MOD BP 30.0 cm??? 22 - 58 / 19 - 49 cm??? LV Ejection Fraction MOD BP 52.1 % >= 55 % LV Cardiac Index MOD BP 1302.8 cm???/min???m??? LV Diastolic Volume MOD 4C 66.3 cm??? LV Systolic Volume MOD 4C 28.6 cm??? LV Ejection Fraction MOD 4C 57.0 % LV Cardiac Index MOD 4C 1509.2 cm???/min???m??? LV Diastolic Length 4C 6.9 cm LV Systolic Length 4C 6.0 cm LV Diastolic Volume MOD 2C 59.1 cm??? LV Systolic Volume MOD 2C 31.6 cm??? LV Ejection Fraction MOD 2C 46.5 % LV Cardiac Index MOD 2C 1098.1 cm???/min???m??? LV Diastolic Length 2C 6.9 cm LV Systolic Length 2C 6.0 cm DOPPLER MV Area PHT 3.5 cm??? Mitral E Point Velocity 62.4 cm/s Mitral A Point Velocity 91.0 cm/s Mitral E to A Ratio 0.7 MV Deceleration Time 218.9 ms FINDINGS Left Ventricle Left ventricular ejection fraction is estimated at 50 %. Normal left ventricular systolic function with no obvious regional wall motion abnormalities. Left ventricular cavity size normal. Left ventricular wall thickness normal. Right Ventricle Normal right ventricular size and function. Unable to estimate the right ventricular systolic pressure. Right Atrium Normal right atrial size. Left Atrium Normal left atrial size. Mitral Valve Structurally normal mitral valve. No mitral stenosis. Trace mitral regurgitation. Aortic Valve Trileaflet aortic valve. No aortic valve stenosis or regurgitation. Tricuspid Valve Structurally normal tricuspid valve. No tricuspid stenosis. Trace tricuspid regurgitation. Pulmonic Valve Structurally normal pulmonic valve. No pulmonic regurgitation. Trace pulmonic regurgitation. Pericardium No pericardial effusion. Aorta Normal size aortic root and proximal ascending aorta. CONCLUSIONS Low normal LV systolic function at 50% Technically difficult study Previewed by: Dr. Marcelino Roe MD (Electronically Signed) Final Date: 27 January 2025 18:49
== END | disposition home or self-care (01) ==
LOC: RADECHMAIN 12:38
PROVIDERS: ATTEND Internal Medicine
DX: I07.1 Rheumatic tricuspid insufficiency (principal); I37.1 Nonrheumatic pulmonary valve insufficiency; I99.9 Unspecified disorder of circulatory system
CPT/HCPCS: 93306